=== PATIENT | female | born 1950 | race Caucasian/White ===

== ENCOUNTER 2021-11-28 10:45 | Outpatient (CLI) | payer SELFPAY ==
[2021-11-28] MEDS ORDERED: LIDOCAINE SOLN 4% 50 ML BOTTLE ONE (10:56)
== END 2021-11-28 23:59 ==
LOC: WOU 10:45
PROVIDERS: ATTEND Specialist
DX: E11.621 Type 2 diabetes mellitus with foot ulcer (principal); L97.412 Non-pressure chronic ulcer of right heel and midfoot with fat layer exposed; E11.42 Type 2 diabetes mellitus with diabetic polyneuropathy; E11.69 Type 2 diabetes mellitus with other specified complication; M86.671 Other chronic osteomyelitis, right ankle and foot; Z79.4 Long term (current) use of insulin
CPT/HCPCS: 87070; 87075; 87077; 87186; 99205; A6209; G0463

== ENCOUNTER 2021-12-12 10:15 | Outpatient (CLI) | payer SELFPAY ==
[2021-12-12] MEDS ORDERED: CLOTRIMAZOLE 1% 15 GM TUBE TP ONE (10:39)
== END 2021-12-12 23:59 | disposition home health service (06) ==
LOC: WOU 10:15
PROVIDERS: ATTEND Specialist
DX: E11.621 Type 2 diabetes mellitus with foot ulcer (principal); L97.412 Non-pressure chronic ulcer of right heel and midfoot with fat layer exposed; B95.62 Methicillin resistant Staphylococcus aureus infection as the cause of diseases classified elsewhere; E11.42 Type 2 diabetes mellitus with diabetic polyneuropathy; Z79.4 Long term (current) use of insulin
CPT/HCPCS: A6209; G0463

== ENCOUNTER 2021-12-19 10:00 | Outpatient (CLI) | payer SELFPAY ==
[2021-12-19] MEDS ORDERED: LIDOCAINE 2% JEL 5 ML TUBE ONE (10:23)
[2021-12-19] MEDS ORDERED: CLOTRIMAZOLE 1% 15 GM TUBE TP ONE (10:41)
== END 2021-12-19 23:59 | disposition home health service (06) ==
LOC: WOU 10:00
PROVIDERS: ATTEND Specialist
DX: E11.621 Type 2 diabetes mellitus with foot ulcer (principal); L97.412 Non-pressure chronic ulcer of right heel and midfoot with fat layer exposed; E11.42 Type 2 diabetes mellitus with diabetic polyneuropathy; Z79.4 Long term (current) use of insulin
CPT/HCPCS: A6209; G0463

== ENCOUNTER 2021-12-26 10:45 | Outpatient (CLI) | payer SELFPAY ==
[2021-12-26] MEDS ORDERED: LIDOCAINE 2% JEL 5 ML TUBE ONE (10:49)
[2021-12-26] MEDS ORDERED: CLOTRIMAZOLE 1% 15 GM TUBE TP ONE (11:05)
== END 2021-12-26 23:59 | disposition home health service (06) ==
LOC: WOU 10:45
PROVIDERS: ATTEND Specialist
DX: E11.621 Type 2 diabetes mellitus with foot ulcer (principal); L97.412 Non-pressure chronic ulcer of right heel and midfoot with fat layer exposed; E11.42 Type 2 diabetes mellitus with diabetic polyneuropathy; Z79.4 Long term (current) use of insulin; Z87.891 Personal history of nicotine dependence
CPT/HCPCS: 11042; A6209

== ENCOUNTER 2022-01-02 10:36 | Outpatient (CLI) | payer SELFPAY ==
[2022-01-02] MEDS ORDERED: LIDOCAINE 2% JEL 5 ML TUBE ONE (10:54)
== END 2022-01-02 23:59 | disposition home health service (06) ==
LOC: WOU 10:36
PROVIDERS: ATTEND Specialist
DX: E11.621 Type 2 diabetes mellitus with foot ulcer (principal); L97.412 Non-pressure chronic ulcer of right heel and midfoot with fat layer exposed; E11.42 Type 2 diabetes mellitus with diabetic polyneuropathy; Z87.891 Personal history of nicotine dependence; Z79.4 Long term (current) use of insulin
CPT/HCPCS: 11042; A6209

== ENCOUNTER 2022-01-09 10:15 | Outpatient (CLI) | payer MEDICARE, OTHER | END 2022-01-09 23:59 | disposition home health service (06) | LOC: WOU 10:15 | PROVIDERS: ATTEND Specialist | DX: E11.621 Type 2 diabetes mellitus with foot ulcer (principal); L97.412 Non-pressure chronic ulcer of right heel and midfoot with fat layer exposed; E11.42 Type 2 diabetes mellitus with diabetic polyneuropathy; Z79.4 Long term (current) use of insulin | CPT/HCPCS: 11042 ==

== ENCOUNTER 2022-01-16 10:20 | Outpatient (CLI) | payer MEDICARE, OTHER ==
[2022-01-16] MEDS ORDERED: LIDOCAINE SOLN 4% 50 ML BOTTLE ONE (10:21)
[2022-01-16] MEDS ORDERED: CLOTRIMAZOLE 1% 15 GM TUBE TP ONE (10:52)
== END 2022-01-16 23:59 | disposition home health service (06) ==
LOC: WOU 10:20
PROVIDERS: ATTEND Specialist
DX: E11.621 Type 2 diabetes mellitus with foot ulcer (principal); L97.412 Non-pressure chronic ulcer of right heel and midfoot with fat layer exposed; E11.42 Type 2 diabetes mellitus with diabetic polyneuropathy; Z79.4 Long term (current) use of insulin
CPT/HCPCS: G0463; A6209

== ENCOUNTER 2022-01-23 10:20 | Outpatient (CLI) | payer MEDICARE, OTHER ==
[2022-01-23] MEDS ORDERED: CLOTRIMAZOLE 1% 15 GM TUBE TP ONE (11:18)
== END 2022-01-23 23:59 | disposition home health service (06) ==
LOC: WOU 10:20
PROVIDERS: ATTEND Specialist
DX: E11.621 Type 2 diabetes mellitus with foot ulcer (principal); L97.412 Non-pressure chronic ulcer of right heel and midfoot with fat layer exposed; E11.42 Type 2 diabetes mellitus with diabetic polyneuropathy; Z79.4 Long term (current) use of insulin
CPT/HCPCS: 17250; 87077; 87075; 87070; 87186; A6209

== ENCOUNTER 2022-01-30 10:10 | Outpatient (CLI) | payer MEDICARE, OTHER ==
[~2022-01-30 10:10] MED LIST: LIDOCAINE SOLN 4% 50 ML BOTTLE ONE
[2022-01-30] MEDS ORDERED: CLOTRIMAZOLE 1% 15 GM TUBE TP ONE (11:08)
== END 2022-01-30 23:59 | disposition home health service (06) ==
LOC: WOU 10:10
PROVIDERS: ATTEND Specialist
DX: E11.621 Type 2 diabetes mellitus with foot ulcer (principal); L97.412 Non-pressure chronic ulcer of right heel and midfoot with fat layer exposed; L08.9 Local infection of the skin and subcutaneous tissue, unspecified; B95.62 Methicillin resistant Staphylococcus aureus infection as the cause of diseases classified elsewhere; E11.42 Type 2 diabetes mellitus with diabetic polyneuropathy; Z79.4 Long term (current) use of insulin
CPT/HCPCS: G0463; A6209 ×2

== ENCOUNTER 2022-02-06 10:55 | Outpatient (CLI) | payer MEDICARE, OTHER | END 2022-02-06 23:59 | disposition home health service (06) | LOC: WOU 10:55 | PROVIDERS: ATTEND Specialist | DX: E11.621 Type 2 diabetes mellitus with foot ulcer (principal); L97.412 Non-pressure chronic ulcer of right heel and midfoot with fat layer exposed; E11.42 Type 2 diabetes mellitus with diabetic polyneuropathy; Z79.4 Long term (current) use of insulin | CPT/HCPCS: 11042; A6209 ==

== ENCOUNTER 2022-02-13 10:20 | Outpatient (CLI) | payer MEDICARE, OTHER | END 2022-02-13 23:59 | disposition home health service (06) | LOC: WOU 10:20 | PROVIDERS: ATTEND Specialist | DX: E11.621 Type 2 diabetes mellitus with foot ulcer (principal); L97.412 Non-pressure chronic ulcer of right heel and midfoot with fat layer exposed; E11.42 Type 2 diabetes mellitus with diabetic polyneuropathy; Z79.4 Long term (current) use of insulin; Z87.891 Personal history of nicotine dependence | CPT/HCPCS: 11042; A6209 ==

== ENCOUNTER 2022-02-20 10:40 | Outpatient (CLI) | payer MEDICARE, OTHER ==
[2022-02-20] MEDS ORDERED: LIDOCAINE SOLN 4% 50 ML BOTTLE ONE (10:48)
== END 2022-02-20 23:59 | disposition home or self-care (01) ==
LOC: WOU 10:40
PROVIDERS: ATTEND Specialist
DX: E11.621 Type 2 diabetes mellitus with foot ulcer (principal); L97.412 Non-pressure chronic ulcer of right heel and midfoot with fat layer exposed; E11.42 Type 2 diabetes mellitus with diabetic polyneuropathy; F41.9 Anxiety disorder, unspecified; Z87.891 Personal history of nicotine dependence; Z88.1 Allergy status to other antibiotic agents
CPT/HCPCS: 11042; 87077; 87075; 87070; A6209

== ENCOUNTER 2022-02-27 10:50 | Outpatient (CLI) | payer MEDICARE, OTHER ==
[2022-02-27] MEDS ORDERED: LIDOCAINE SOLN 4% 50 ML BOTTLE ONE (11:00)
== END 2022-02-27 23:59 ==
LOC: WOU 10:50
PROVIDERS: ATTEND Specialist
DX: E11.621 Type 2 diabetes mellitus with foot ulcer (principal); L97.412 Non-pressure chronic ulcer of right heel and midfoot with fat layer exposed; E11.42 Type 2 diabetes mellitus with diabetic polyneuropathy; Z87.891 Personal history of nicotine dependence; F60.3 Borderline personality disorder; Z88.1 Allergy status to other antibiotic agents; Z86.73 Personal history of transient ischemic attack (TIA), and cerebral infarction without residual deficits
CPT/HCPCS: G0463; A6209

== ENCOUNTER 2022-03-06 10:30 | Outpatient (CLI) | payer MEDICARE, OTHER ==
[2022-03-06] MEDS ORDERED: LIDOCAINE SOLN 4% 50 ML BOTTLE ONE (10:34)
== END 2022-03-06 23:59 ==
LOC: WOU 10:30
PROVIDERS: ATTEND Specialist
DX: E11.621 Type 2 diabetes mellitus with foot ulcer (principal); L97.412 Non-pressure chronic ulcer of right heel and midfoot with fat layer exposed; E11.42 Type 2 diabetes mellitus with diabetic polyneuropathy; Z87.891 Personal history of nicotine dependence; F60.3 Borderline personality disorder; R26.9 Unspecified abnormalities of gait and mobility; Z79.4 Long term (current) use of insulin
CPT/HCPCS: 11042

== ENCOUNTER 2022-03-13 10:40 | Outpatient (CLI) | payer MEDICARE, OTHER ==
[2022-03-13] MEDS ORDERED: LIDOCAINE SOLN 4% 50 ML BOTTLE ONE (11:01)
== END 2022-03-13 23:59 | disposition home health service (06) ==
LOC: WOU 10:40
PROVIDERS: ATTEND Specialist
DX: E11.621 Type 2 diabetes mellitus with foot ulcer (principal); L97.412 Non-pressure chronic ulcer of right heel and midfoot with fat layer exposed; L08.9 Local infection of the skin and subcutaneous tissue, unspecified; B95.62 Methicillin resistant Staphylococcus aureus infection as the cause of diseases classified elsewhere; E11.42 Type 2 diabetes mellitus with diabetic polyneuropathy; Z79.4 Long term (current) use of insulin
CPT/HCPCS: G0463; A6209

== ENCOUNTER 2022-03-20 10:35 | Outpatient (CLI) | payer MEDICARE, OTHER | END 2022-03-20 23:59 | disposition home health service (06) | LOC: WOU 10:35 | PROVIDERS: ATTEND Specialist | DX: E11.621 Type 2 diabetes mellitus with foot ulcer (principal); L97.412 Non-pressure chronic ulcer of right heel and midfoot with fat layer exposed; E11.42 Type 2 diabetes mellitus with diabetic polyneuropathy; Z79.4 Long term (current) use of insulin | CPT/HCPCS: 17250; A6209 ==

== ENCOUNTER 2022-03-27 10:00 | Outpatient (CLI) | payer MEDICARE, OTHER ==
[2022-03-27] MEDS ORDERED: LIDOCAINE SOLN 4% 50 ML BOTTLE ONE (10:25)
== END 2022-03-27 23:59 | disposition home health service (06) ==
LOC: WOU 10:00
PROVIDERS: ATTEND Specialist
DX: E11.621 Type 2 diabetes mellitus with foot ulcer (principal); L97.412 Non-pressure chronic ulcer of right heel and midfoot with fat layer exposed; S99.921A Unspecified injury of right foot, initial encounter; W22.03XA Walked into furniture, initial encounter; Y92.89 Other specified places as the place of occurrence of the external cause; E11.42 Type 2 diabetes mellitus with diabetic polyneuropathy; Z79.4 Long term (current) use of insulin
CPT/HCPCS: 11042; A6209

== ENCOUNTER 2022-04-03 10:20 | Outpatient (CLI) | payer MEDICARE, OTHER | END 2022-04-03 23:59 | disposition home health service (06) | LOC: WOU 10:20 | PROVIDERS: ATTEND Specialist | DX: E11.621 Type 2 diabetes mellitus with foot ulcer (principal); L97.412 Non-pressure chronic ulcer of right heel and midfoot with fat layer exposed; E11.42 Type 2 diabetes mellitus with diabetic polyneuropathy; Z79.4 Long term (current) use of insulin | CPT/HCPCS: G0463; A6209 ==

== ENCOUNTER 2022-04-10 10:18 | Outpatient (CLI) | payer MEDICARE, OTHER | END 2022-04-10 23:59 | disposition home health service (06) | LOC: WOU 10:18 | PROVIDERS: ATTEND Specialist | DX: E11.621 Type 2 diabetes mellitus with foot ulcer (principal); L97.418 Non-pressure chronic ulcer of right heel and midfoot with other specified severity; E11.42 Type 2 diabetes mellitus with diabetic polyneuropathy; Z79.4 Long term (current) use of insulin | CPT/HCPCS: G0463; A6209 ==

== ENCOUNTER 2022-04-24 10:45 | Outpatient (CLI) | payer MEDICARE, OTHER ==
[2022-04-24] MEDS ORDERED: SILVER NITRATE APPLICATOR 1 EA BOX ONE (11:38)
== END 2022-04-24 23:59 ==
LOC: WOU 10:45
PROVIDERS: ATTEND Specialist
DX: E11.621 Type 2 diabetes mellitus with foot ulcer (principal); L97.418 Non-pressure chronic ulcer of right heel and midfoot with other specified severity; E11.42 Type 2 diabetes mellitus with diabetic polyneuropathy; Z79.4 Long term (current) use of insulin; S83.91XA Sprain of unspecified site of right knee, initial encounter; W19.XXXA Unspecified fall, initial encounter; Y93.89 Activity, other specified; Y92.89 Other specified places as the place of occurrence of the external cause; Y99.8 Other external cause status; M25.561 Pain in right knee; M79.604 Pain in right leg
CPT/HCPCS: 17250; 73564; 73590; A6209

== ENCOUNTER 2022-05-01 10:30 | Outpatient (CLI) | payer MEDICARE, OTHER | END 2022-05-01 23:59 | disposition home health service (06) | LOC: WOU 10:30 | PROVIDERS: ATTEND Specialist | DX: E11.621 Type 2 diabetes mellitus with foot ulcer (principal); L97.418 Non-pressure chronic ulcer of right heel and midfoot with other specified severity; E11.42 Type 2 diabetes mellitus with diabetic polyneuropathy; Z79.4 Long term (current) use of insulin; Z87.891 Personal history of nicotine dependence | CPT/HCPCS: 87077; 87075; 87070; G0463; A6209 ==

== ENCOUNTER 2022-05-08 10:32 | Outpatient (CLI) | payer MEDICARE, OTHER | END 2022-05-08 23:59 | LOC: WOU 10:32 | PROVIDERS: ATTEND Specialist | DX: E11.621 Type 2 diabetes mellitus with foot ulcer (principal); L97.418 Non-pressure chronic ulcer of right heel and midfoot with other specified severity; E11.42 Type 2 diabetes mellitus with diabetic polyneuropathy; Z79.4 Long term (current) use of insulin | CPT/HCPCS: 15275; Q4158; A6209 ==

== ENCOUNTER 2022-05-15 10:40 | Outpatient (CLI) | payer MEDICARE, OTHER ==
[2022-05-15] MEDS ORDERED: LIDOCAINE SOLN 4% 50 ML BOTTLE ONE (10:43)
[2022-05-15] MEDS ORDERED: UREA 10% -AHA 4% CREAM 57 GM TUBE ONE (11:42)
== END 2022-05-15 23:59 | disposition home health service (06) ==
LOC: WOU 10:40
PROVIDERS: ATTEND Specialist
DX: E11.621 Type 2 diabetes mellitus with foot ulcer (principal); L97.412 Non-pressure chronic ulcer of right heel and midfoot with fat layer exposed; E11.42 Type 2 diabetes mellitus with diabetic polyneuropathy; Z79.4 Long term (current) use of insulin; Z87.891 Personal history of nicotine dependence
CPT/HCPCS: 15275; Q4101 ×2

== ENCOUNTER 2022-05-22 10:30 | Outpatient (CLI) | payer MEDICARE, OTHER | END 2022-05-22 23:59 | disposition home health service (06) | LOC: WOU 10:30 | PROVIDERS: ATTEND Specialist | DX: E11.621 Type 2 diabetes mellitus with foot ulcer (principal); L97.412 Non-pressure chronic ulcer of right heel and midfoot with fat layer exposed; E11.42 Type 2 diabetes mellitus with diabetic polyneuropathy; Z79.4 Long term (current) use of insulin | CPT/HCPCS: 15275; Q4101 ×2 ==

== ENCOUNTER 2022-06-05 10:36 | Outpatient (CLI) | payer MEDICARE, OTHER | END 2022-06-05 23:59 | disposition home health service (06) | LOC: WOU 10:36 | PROVIDERS: ATTEND Specialist | DX: E11.621 Type 2 diabetes mellitus with foot ulcer (principal); L97.412 Non-pressure chronic ulcer of right heel and midfoot with fat layer exposed; E11.42 Type 2 diabetes mellitus with diabetic polyneuropathy; Z79.4 Long term (current) use of insulin | CPT/HCPCS: 15275; Q4101 ×2 ==

== ENCOUNTER 2022-06-12 10:57 | Outpatient (CLI) | payer MEDICARE, OTHER | END 2022-06-12 23:59 | disposition home health service (06) | LOC: WOU 10:57 | PROVIDERS: ATTEND Specialist | DX: E11.621 Type 2 diabetes mellitus with foot ulcer (principal); L97.412 Non-pressure chronic ulcer of right heel and midfoot with fat layer exposed; E11.42 Type 2 diabetes mellitus with diabetic polyneuropathy; Z79.4 Long term (current) use of insulin; Z87.891 Personal history of nicotine dependence | CPT/HCPCS: 15275; Q4133 ==

== ENCOUNTER 2022-06-19 10:20 | Outpatient (CLI) | payer MEDICARE, OTHER | END 2022-06-19 23:59 | disposition home or self-care (01) | LOC: WOU 10:20 | PROVIDERS: ATTEND Specialist | DX: E11.621 Type 2 diabetes mellitus with foot ulcer (principal); L97.412 Non-pressure chronic ulcer of right heel and midfoot with fat layer exposed; E11.42 Type 2 diabetes mellitus with diabetic polyneuropathy; Z79.4 Long term (current) use of insulin; I89.0 Lymphedema, not elsewhere classified | CPT/HCPCS: G0463 ==

== ENCOUNTER 2022-06-26 10:35 | Outpatient (CLI) | payer MEDICARE, OTHER | END 2022-06-26 23:59 | disposition home health service (06) | LOC: WOU 10:35 | PROVIDERS: ATTEND Specialist | DX: E11.621 Type 2 diabetes mellitus with foot ulcer (principal); L97.412 Non-pressure chronic ulcer of right heel and midfoot with fat layer exposed; E11.42 Type 2 diabetes mellitus with diabetic polyneuropathy; R60.0 Localized edema; Z79.4 Long term (current) use of insulin | CPT/HCPCS: 15275; Q4158 ==

== ENCOUNTER 2022-07-10 10:31 | Outpatient (CLI) | payer MEDICARE, OTHER | END 2022-07-10 23:59 | disposition home health service (06) | LOC: WOU 10:31 | PROVIDERS: ATTEND Specialist | DX: E11.621 Type 2 diabetes mellitus with foot ulcer (principal); L97.412 Non-pressure chronic ulcer of right heel and midfoot with fat layer exposed; E11.42 Type 2 diabetes mellitus with diabetic polyneuropathy; Z79.4 Long term (current) use of insulin | CPT/HCPCS: G0463 ==

== ENCOUNTER 2022-07-17 10:30 | Outpatient (CLI) | payer MEDICARE, OTHER ==
[2022-07-17] MEDS ORDERED: LIDOCAINE SOLN 4% 50 ML BOTTLE ONE (10:52)
== END 2022-07-17 23:59 | disposition home health service (06) ==
LOC: WOU 10:30
PROVIDERS: ATTEND Specialist
DX: E11.621 Type 2 diabetes mellitus with foot ulcer (principal); L97.412 Non-pressure chronic ulcer of right heel and midfoot with fat layer exposed; E11.42 Type 2 diabetes mellitus with diabetic polyneuropathy; Z79.4 Long term (current) use of insulin
CPT/HCPCS: G0463

== ENCOUNTER 2022-07-24 11:11 | Outpatient (CLI) | payer MEDICARE, OTHER | END 2022-07-24 23:59 | disposition home health service (06) | LOC: WOU 11:11 | PROVIDERS: ATTEND Specialist | DX: E11.621 Type 2 diabetes mellitus with foot ulcer (principal); L97.412 Non-pressure chronic ulcer of right heel and midfoot with fat layer exposed; E11.42 Type 2 diabetes mellitus with diabetic polyneuropathy; Z79.4 Long term (current) use of insulin | CPT/HCPCS: 11042 ==

== ENCOUNTER 2022-07-31 10:19 | Outpatient (CLI) | payer MEDICARE, OTHER ==
[2022-07-31] MEDS ORDERED: LIDOCAINE SOLN 4% 50 ML BOTTLE ONE (10:21)
== END 2022-07-31 23:59 ==
LOC: WOU 10:19
PROVIDERS: ATTEND Specialist
DX: E11.621 Type 2 diabetes mellitus with foot ulcer (principal); L97.412 Non-pressure chronic ulcer of right heel and midfoot with fat layer exposed; E11.42 Type 2 diabetes mellitus with diabetic polyneuropathy; Z87.891 Personal history of nicotine dependence; Z79.4 Long term (current) use of insulin
CPT/HCPCS: 11042

== ENCOUNTER 2022-08-07 10:30 | Outpatient (CLI) | payer MEDICARE, OTHER ==
[2022-08-07] MEDS ORDERED: LIDOCAINE SOLN 4% 50 ML BOTTLE ONE (10:50)
== END 2022-08-07 23:59 | disposition home health service (06) ==
LOC: WOU 10:30
PROVIDERS: ATTEND Specialist
DX: E11.621 Type 2 diabetes mellitus with foot ulcer (principal); L97.418 Non-pressure chronic ulcer of right heel and midfoot with other specified severity; E11.42 Type 2 diabetes mellitus with diabetic polyneuropathy; Z79.4 Long term (current) use of insulin; Z87.891 Personal history of nicotine dependence
CPT/HCPCS: G0463; A6209

== ENCOUNTER 2022-08-14 11:43 | Outpatient (CLI) | payer MEDICARE, OTHER | END 2022-08-14 23:59 | LOC: WOU 11:43 | PROVIDERS: ATTEND Specialist | DX: E11.621 Type 2 diabetes mellitus with foot ulcer (principal); L97.418 Non-pressure chronic ulcer of right heel and midfoot with other specified severity; E11.42 Type 2 diabetes mellitus with diabetic polyneuropathy; Z79.4 Long term (current) use of insulin | CPT/HCPCS: 11042 ==

== ENCOUNTER 2022-08-21 11:00 | Outpatient (CLI) | payer MEDICARE, OTHER | END 2022-08-21 23:59 | LOC: WOU 11:00 | PROVIDERS: ATTEND Specialist | DX: E11.621 Type 2 diabetes mellitus with foot ulcer (principal); L97.418 Non-pressure chronic ulcer of right heel and midfoot with other specified severity; E11.42 Type 2 diabetes mellitus with diabetic polyneuropathy; Z87.891 Personal history of nicotine dependence; Z79.4 Long term (current) use of insulin | CPT/HCPCS: 87070; 87075; G0463; A6197 ==

== ENCOUNTER → 2022-08-28 | Outpatient (CLI) | payer MEDICARE, OTHER | LOC: WOU 10:54 | PROVIDERS: ATTEND Specialist | DX: E11.621 Type 2 diabetes mellitus with foot ulcer (principal); L97.412 Non-pressure chronic ulcer of right heel and midfoot with fat layer exposed; E11.42 Type 2 diabetes mellitus with diabetic polyneuropathy; Z79.4 Long term (current) use of insulin | CPT/HCPCS: 11042 ==

== ENCOUNTER 2022-09-04 10:12 | Outpatient (CLI) | payer MEDICARE, OTHER | END 2022-09-04 23:59 | LOC: WOU 10:12 | PROVIDERS: ATTEND Specialist | DX: E11.621 Type 2 diabetes mellitus with foot ulcer (principal); L97.412 Non-pressure chronic ulcer of right heel and midfoot with fat layer exposed; E11.42 Type 2 diabetes mellitus with diabetic polyneuropathy; Z87.891 Personal history of nicotine dependence; Z79.4 Long term (current) use of insulin | CPT/HCPCS: 11042 ==

== ENCOUNTER 2022-09-11 10:30 | Outpatient (CLI) | payer MEDICARE, OTHER | END 2022-09-11 23:59 | LOC: WOU 10:30 | PROVIDERS: ATTEND Specialist | DX: E11.621 Type 2 diabetes mellitus with foot ulcer (principal); L97.412 Non-pressure chronic ulcer of right heel and midfoot with fat layer exposed; E11.42 Type 2 diabetes mellitus with diabetic polyneuropathy; Z79.4 Long term (current) use of insulin | CPT/HCPCS: 17250; A6197 ==

== ENCOUNTER 2022-09-18 11:05 | Outpatient (CLI) | payer MEDICARE, OTHER | END 2022-09-18 23:59 | disposition home health service (06) | LOC: WOU 11:05 | PROVIDERS: ATTEND Specialist | DX: E11.621 Type 2 diabetes mellitus with foot ulcer (principal); L97.412 Non-pressure chronic ulcer of right heel and midfoot with fat layer exposed; E11.42 Type 2 diabetes mellitus with diabetic polyneuropathy; Z79.4 Long term (current) use of insulin | CPT/HCPCS: 15275; Q4158 ==

== ENCOUNTER 2022-09-25 11:01 | Outpatient (CLI) | payer MEDICARE, OTHER | END 2022-09-25 23:59 | disposition home health service (06) | LOC: WOU 11:01 | PROVIDERS: ATTEND Specialist | DX: E11.621 Type 2 diabetes mellitus with foot ulcer (principal); L97.412 Non-pressure chronic ulcer of right heel and midfoot with fat layer exposed; E11.42 Type 2 diabetes mellitus with diabetic polyneuropathy; Z79.4 Long term (current) use of insulin; Z87.891 Personal history of nicotine dependence | CPT/HCPCS: 15275; Q4158 ==

== ENCOUNTER 2022-10-02 10:22 | Outpatient (CLI) | payer MEDICARE, OTHER | END 2022-10-02 23:59 | disposition home health service (06) | LOC: WOU 10:22 | PROVIDERS: ATTEND Specialist | DX: E11.621 Type 2 diabetes mellitus with foot ulcer (principal); L97.412 Non-pressure chronic ulcer of right heel and midfoot with fat layer exposed; L97.518 Non-pressure chronic ulcer of other part of right foot with other specified severity; E11.42 Type 2 diabetes mellitus with diabetic polyneuropathy; Z87.891 Personal history of nicotine dependence; Z79.4 Long term (current) use of insulin | CPT/HCPCS: 15275; Q4158; A6209 ==

== ENCOUNTER 2022-10-09 11:33 | Outpatient (CLI) | payer MEDICARE, OTHER | END 2022-10-09 23:59 | LOC: WOU 11:33 | PROVIDERS: ATTEND Specialist | DX: E11.621 Type 2 diabetes mellitus with foot ulcer (principal); L97.412 Non-pressure chronic ulcer of right heel and midfoot with fat layer exposed; L97.512 Non-pressure chronic ulcer of other part of right foot with fat layer exposed; E11.42 Type 2 diabetes mellitus with diabetic polyneuropathy; Z79.4 Long term (current) use of insulin | CPT/HCPCS: 15271; Q4158; A6209 ==

== ENCOUNTER 2022-10-16 11:41 | Outpatient (CLI) | payer MEDICARE, OTHER | END 2022-10-16 23:59 | LOC: WOU 11:41 | PROVIDERS: ATTEND Specialist | DX: E11.621 Type 2 diabetes mellitus with foot ulcer (principal); L97.512 Non-pressure chronic ulcer of other part of right foot with fat layer exposed; L97.412 Non-pressure chronic ulcer of right heel and midfoot with fat layer exposed; E11.42 Type 2 diabetes mellitus with diabetic polyneuropathy; Z87.891 Personal history of nicotine dependence; Z79.4 Long term (current) use of insulin | CPT/HCPCS: G0463 ==

== ENCOUNTER 2022-10-23 13:09 | Outpatient (CLI) | payer MEDICARE, OTHER | END 2022-10-23 23:59 | LOC: WOU 13:09 | PROVIDERS: ATTEND Specialist | DX: E11.621 Type 2 diabetes mellitus with foot ulcer (principal); L97.412 Non-pressure chronic ulcer of right heel and midfoot with fat layer exposed; L97.512 Non-pressure chronic ulcer of other part of right foot with fat layer exposed; E11.42 Type 2 diabetes mellitus with diabetic polyneuropathy; Z87.891 Personal history of nicotine dependence; Z79.4 Long term (current) use of insulin | CPT/HCPCS: G0463 ==

== ENCOUNTER 2022-10-30 10:36 | Outpatient (CLI) | payer MEDICARE, OTHER | END 2022-10-30 23:59 | disposition home health service (06) | LOC: WOU 10:36 | PROVIDERS: ATTEND Specialist | DX: E11.621 Type 2 diabetes mellitus with foot ulcer (principal); L97.412 Non-pressure chronic ulcer of right heel and midfoot with fat layer exposed; L97.512 Non-pressure chronic ulcer of other part of right foot with fat layer exposed; E11.42 Type 2 diabetes mellitus with diabetic polyneuropathy; I10 Essential (primary) hypertension; Z79.4 Long term (current) use of insulin | CPT/HCPCS: 11042 ==

== ENCOUNTER 2022-11-06 10:12 | Outpatient (CLI) | payer MEDICARE, OTHER | END 2022-11-06 23:59 | disposition home health service (06) | LOC: WOU 10:12 | PROVIDERS: ATTEND Specialist | DX: E11.621 Type 2 diabetes mellitus with foot ulcer (principal); L97.412 Non-pressure chronic ulcer of right heel and midfoot with fat layer exposed; L97.512 Non-pressure chronic ulcer of other part of right foot with fat layer exposed; E11.42 Type 2 diabetes mellitus with diabetic polyneuropathy; R60.0 Localized edema; Z79.4 Long term (current) use of insulin | CPT/HCPCS: 11042 ==

== ENCOUNTER 2022-11-20 11:03 | Outpatient (CLI) | payer MEDICARE, OTHER | END 2022-11-20 23:59 | LOC: WOU 11:03 | PROVIDERS: ATTEND Specialist | DX: E11.621 Type 2 diabetes mellitus with foot ulcer (principal); L97.418 Non-pressure chronic ulcer of right heel and midfoot with other specified severity; L97.518 Non-pressure chronic ulcer of other part of right foot with other specified severity; E11.42 Type 2 diabetes mellitus with diabetic polyneuropathy; R60.0 Localized edema; Z79.4 Long term (current) use of insulin | CPT/HCPCS: G0463 ==

== ENCOUNTER 2022-11-27 10:42 | Outpatient (CLI) | payer MEDICARE, OTHER | END 2022-11-27 23:59 | disposition home health service (06) | LOC: WOU 10:42 | PROVIDERS: ATTEND Specialist | DX: S90.411A Abrasion, right great toe, initial encounter (principal); X58.XXXA Exposure to other specified factors, initial encounter; Y92.89 Other specified places as the place of occurrence of the external cause; E11.42 Type 2 diabetes mellitus with diabetic polyneuropathy; Z79.4 Long term (current) use of insulin; R60.0 Localized edema | CPT/HCPCS: G0463 ==

== ENCOUNTER 2022-12-04 10:21 | Outpatient (CLI) | payer MEDICARE, OTHER | END 2022-12-04 23:59 | disposition home health service (06) | LOC: WOU 10:21 | PROVIDERS: ATTEND Specialist | DX: E11.621 Type 2 diabetes mellitus with foot ulcer (principal); L97.418 Non-pressure chronic ulcer of right heel and midfoot with other specified severity; E11.42 Type 2 diabetes mellitus with diabetic polyneuropathy; R60.0 Localized edema; Z79.4 Long term (current) use of insulin | CPT/HCPCS: G0463 ==

== ENCOUNTER 2022-12-11 11:12 | Outpatient (CLI) | payer MEDICARE, OTHER | END 2022-12-11 23:59 | disposition home health service (06) | LOC: WOU 11:12 | PROVIDERS: ATTEND Specialist | DX: E11.621 Type 2 diabetes mellitus with foot ulcer (principal); L97.418 Non-pressure chronic ulcer of right heel and midfoot with other specified severity; S90.812A Abrasion, left foot, initial encounter; X58.XXXA Exposure to other specified factors, initial encounter; Y92.89 Other specified places as the place of occurrence of the external cause; E11.42 Type 2 diabetes mellitus with diabetic polyneuropathy; R60.0 Localized edema; Z79.4 Long term (current) use of insulin | CPT/HCPCS: G0463 ==

== ENCOUNTER 2022-12-18 10:37 | Outpatient (CLI) | payer MEDICARE, OTHER | END 2022-12-18 23:59 | disposition home health service (06) | LOC: WOU 10:37 | PROVIDERS: ATTEND Specialist | DX: E11.621 Type 2 diabetes mellitus with foot ulcer (principal); L97.412 Non-pressure chronic ulcer of right heel and midfoot with fat layer exposed; L97.518 Non-pressure chronic ulcer of other part of right foot with other specified severity; R60.0 Localized edema; Z79.4 Long term (current) use of insulin | CPT/HCPCS: 11042; A6209 ==

== ENCOUNTER 2023-01-29 10:03 | Outpatient (CLI) | payer MEDICARE, OTHER | END 2023-01-29 23:59 | disposition home health service (06) | LOC: WOU 10:03 | PROVIDERS: ATTEND Specialist | DX: E11.621 Type 2 diabetes mellitus with foot ulcer (principal); L97.412 Non-pressure chronic ulcer of right heel and midfoot with fat layer exposed; E11.42 Type 2 diabetes mellitus with diabetic polyneuropathy; R60.0 Localized edema; Z87.891 Personal history of nicotine dependence; Z79.4 Long term (current) use of insulin | CPT/HCPCS: 11042; A6209 ==

== ENCOUNTER 2023-03-05 11:06 | Outpatient (CLI) | payer MEDICARE, OTHER | END 2023-03-05 23:59 | disposition home health service (06) | LOC: WOU 11:06 | PROVIDERS: ATTEND Specialist | DX: E11.621 Type 2 diabetes mellitus with foot ulcer (principal); L97.412 Non-pressure chronic ulcer of right heel and midfoot with fat layer exposed; E11.42 Type 2 diabetes mellitus with diabetic polyneuropathy; R60.0 Localized edema; Z87.891 Personal history of nicotine dependence; Z88.1 Allergy status to other antibiotic agents; Z79.4 Long term (current) use of insulin; Z79.899 Other long term (current) drug therapy | CPT/HCPCS: 11042 ==

== ENCOUNTER 2023-03-26 09:59 | Outpatient (CLI) | payer MEDICARE, OTHER | END 2023-03-26 23:59 | disposition home health service (06) | LOC: WOU 09:59 | PROVIDERS: ATTEND Specialist | DX: E11.621 Type 2 diabetes mellitus with foot ulcer (principal); L97.412 Non-pressure chronic ulcer of right heel and midfoot with fat layer exposed; S90.411D Abrasion, right great toe, subsequent encounter; X58.XXXD Exposure to other specified factors, subsequent encounter; E11.42 Type 2 diabetes mellitus with diabetic polyneuropathy; Z79.4 Long term (current) use of insulin; R60.0 Localized edema | CPT/HCPCS: 11042; 11045; A6207; A6209 ==

== ENCOUNTER 2023-07-30 12:39 | Inpatient (IN) | payer MEDICARE, OTHER ==
[~2023-07-30] VITALS: Ht 167.6 cm; Wt 86.2 kg
[2023-07-30] MEDS ORDERED: VANCOMYCIN 1 GM in IV D5W 250 ML IV ONE (13:00)
[2023-07-30 13:47] LABS: BASOPHILS % (AUTO) 0.3 % (0.0-2.0); EOSINOPHILS # (AUTO) 0.1 K/uL (0.0-0.7); EOSINOPHILS % (AUTO) 1.2 % (0.0-6.0); HEMATOCRIT 44 % (33-45); LYMPHOCYTES # (AUTO) 0.8 K/uL (0.8-4.8); LYMPHOCYTES % (AUTO) 7.2 % (20.0-44.0); MEAN CORPUSCULAR HEMOGLOBIN 30 PG (26.0-33.0); MEAN CORPUSCULAR HGB CONC 32 g/dl (31.0-36.0); MEAN CORPUSCULAR VOLUME 94 fL (82-100); MONOCYTES # (AUTO) 0.9 K/uL (0.1-1.30); MONOCYTES % (AUTO) 8.2 % (2.0-12.0); NEUTROPHILS # (AUTO) 8.6 K/uL (1.8-8.9); NEUTROPHILS % (AUTO) 83.1 % (43.0-81.0); PLATELET COUNT (AUTO) 98 K/uL (150-450); RED CELL DISTRIBUTION WIDTH 20.2 % (11.5-15.0); WHITE BLOOD COUNT (AUTO) 10.4 K/uL (4.3-11.0)
[2023-07-30 13:51] LABS: ERYTHROCYTE SEDIMENTATION RATE 36 MM/HR (0-30)
[2023-07-30 13:55] LABS: CALCIUM, SERUM 8.7 mg/dL (8.5-10.1); CARBON DIOXIDE 24 mmol/L (21-32); CHLORIDE 109 mmol/L (98-107); CREATININE 1.5 mg/dL (0.6-1.3); GLUCOSE 129 mg/dL (74-106); POTASSIUM 4.1 mmol/L (3.5-5.1); SODIUM SERUM 140 mmol/L (136-145); UREA NITROGEN, BLOOD 34 mg/dL (7-18)
[2023-07-30 13:56] LABS: C-REACTIVE PROTEIN 2.84 mg/dL (0.0-0.30)
[2023-07-30 14:06] LABS: LACTIC ACID 2.5 mmol/L (0.4-2.0)
[2023-07-30 14:09] LABS: ALANINE AMINOTRANSFERASE 13 U/L (12-78); ALBUMIN 2.9 g/dL (3.4-5.0); ALKALINE PHOSPHATASE 160 U/L (46-116); ASPARTATE AMINOTRANSFERASE 11 U/L (15-37); BILIRUBIN,TOTAL 1.7 mg/dL (0.2-1.0); TOTAL PROTEIN, SERUM 7.3 g/dL (6.4-8.2)
[2023-07-30] MEDS ORDERED: INSU100V7 SQ (14:32)
[2023-07-30] MEDS ORDERED: [UNRECOGNIZED DRUG - SUPPLY] (14:32)
[2023-07-30] MEDS ORDERED: IBUP-1953 PO (14:32)
[2023-07-30] MEDS ORDERED: INSU100I14 SQ (14:32)
[2023-07-30] MEDS ORDERED: ACET1TAB23 PO (14:32)
[2023-07-30] MEDS ORDERED: GLUC1KIT IM (14:32)
[2023-07-30] MEDS ORDERED: ACET-868 PO (14:32)
[2023-07-30] MEDS ORDERED: GABA300C PO (14:32)
[2023-07-30] MEDS ORDERED: BISM-126 PO (14:33)
[2023-07-30] MEDS ORDERED: SENN-261 PO (14:33)
[2023-07-30] MEDS ORDERED: PANT40TA2 PO (14:33)
[2023-07-30] MEDS ORDERED: [UNRECOGNIZED DRUG - OTHER] TP (14:33)
[2023-07-30] MEDS ORDERED: POLY17PO4 PO (14:33)
[2023-07-30 16:03] LABS: LYMPHOCYTES % (MANUAL) 10 % (16-48); MONOCYTES % (MANUAL) 10 % (0-11.0); NEUTROPHILS % (MANUAL) 80 (42-76)
[2023-07-30 16:04] LABS: ANISOCYTOSIS 1+; PLATELET ESTIMATE DECREASED
[2023-07-30 16:24] LABS: BILIRUBIN,DIRECT 0.8 mg/dL (0.0-0.2)
[2023-07-30] MEDS ORDERED: ONDANSETRON HCL/PF 4 MG/2 ML VIAL IVP PRN (16:30)
[2023-07-30] MEDS ORDERED: IV NS 0.9% 1,000 ML IV PRN (16:30)
[2023-07-30] MEDS ORDERED: ACETAMINOPHEN 325 MG TABLET PO PRN (16:30)
[2023-07-30 16:32] LABS: LACTIC ACID REFLEX 1.8 mmol/L (0.4-1.9)
[2023-07-30] MEDS ORDERED: PIPERACILLIN /TAZOBACTAM 3.375 G in IV D5W 100 ML IV SCH (17:00)
[2023-07-30 18:45] VITALS: BP 118/83; TEMP 98.6; O2SAT 98
[2023-07-30] MEDS: ENOXAPARIN SODIUM 40 MG/0.4 ML DISP.SYRIN SQ SCH (19:06)
[2023-07-30] MEDS: LEVOFLOXACIN 500 MG /D5W 100ML 500 MG in PREMIX 1 EA IV SCH (21:12)
[2023-07-31 08:17] VITALS: BP 128/76; TEMP 97.5; O2SAT 96
[2023-07-31] MEDS ORDERED: PANTOPRAZOLE 40 MG TABLET.DR PO PRN (11:30)
[2023-07-31] MEDS: VANCOMYCIN 1 GM in IV D5W 250ml IV SCH (15:14)
[2023-07-31 15:51] VITALS: BP 98/72; TEMP 98.9; O2SAT 98
[2023-07-31 17:28] LABS: CARBON DIOXIDE 21 mmol/L (21-32); CHLORIDE 107 mmol/L (98-107); POTASSIUM 4.6 mmol/L (3.5-5.1); SODIUM SERUM 139 mmol/L (136-145)
[2023-07-31 17:29] LABS: CALCIUM, SERUM 8.8 mg/dL (8.5-10.1); CREATININE 1.5 mg/dL (0.6-1.3); GLUCOSE 177 mg/dL (74-106); PHOSPHORUS 3.4 mg/dL (2.5-4.9); UREA NITROGEN, BLOOD 34 mg/dL (7-18)
[2023-07-31] MEDS: ENOXAPARIN SODIUM 40 MG/0.4 ML DISP.SYRIN SQ SCH (17:41)
[2023-07-31] MEDS: LEVOFLOXACIN 500 MG /D5W 100ML 500 MG in PREMIX 1 EA IV SCH (21:19)
[2023-07-31] MEDS: GABAPENTIN 300 MG CAPSULE PO SCH (22:00)
[2023-08-01 08:34] VITALS: BP 97/62; TEMP 97.5; O2SAT 98
[2023-08-01] MEDS: VANCOMYCIN 1 GM in IV D5W 250ml IV SCH (14:04)
[2023-08-01 15:59] VITALS: BP 121/60; TEMP 97.6; O2SAT 98
[2023-08-01] MEDS: ENOXAPARIN SODIUM 40 MG/0.4 ML DISP.SYRIN SQ SCH (18:00)
[2023-08-01 20:00] VITALS: BP 98/69; TEMP 97.5; O2SAT 97
[2023-08-01] MEDS: GABAPENTIN 300 MG CAPSULE PO SCH (22:00)
[2023-08-01] MEDS: LEVOFLOXACIN 500 MG /D5W 100ML 500 MG in PREMIX 1 EA IV SCH (22:26)
[2023-08-02 08:00] VITALS: BP 102/74; TEMP 98.2; O2SAT 96
[2023-08-02] MEDS: VANCOMYCIN 1 GM in IV D5W 250ml IV SCH (14:00)
[2023-08-02] MEDS: ENOXAPARIN SODIUM 40 MG/0.4 ML DISP.SYRIN SQ SCH (17:47)
[2023-08-02] MEDS ORDERED: LEVO500T90 PO (17:49)
[2023-08-02] MEDS: LEVOFLOXACIN 500 MG /D5W 100ML 500 MG in PREMIX 1 EA IV SCH (21:00)
[2023-08-02] MEDS: GABAPENTIN 300 MG CAPSULE PO SCH (21:43)
[2023-08-03] MEDS: VANCOMYCIN 1 GM in IV D5W 250ml IV SCH (14:00)
== END 2023-08-03 15:00 | DRG 602 ==
LOC: ER 12:42 → MED 17:16
PROVIDERS: ADMIT Nurse Practitioner Acute Care; ATTEND Nurse Practitioner Acute Care
DX: L03.115 Cellulitis of right lower limb (principal); N17.0 Acute kidney failure with tubular necrosis; E44.0 Moderate protein-calorie malnutrition; E87.20 Acidosis, unspecified; D68.69 Other thrombophilia; L97.428 Non-pressure chronic ulcer of left heel and midfoot with other specified severity; L97.418 Non-pressure chronic ulcer of right heel and midfoot with other specified severity; M86.672 Other chronic osteomyelitis, left ankle and foot; L03.116 Cellulitis of left lower limb; E11.22 Type 2 diabetes mellitus with diabetic chronic kidney disease; E11.42 Type 2 diabetes mellitus with diabetic polyneuropathy; E11.51 Type 2 diabetes mellitus with diabetic peripheral angiopathy without gangrene; E11.69 Type 2 diabetes mellitus with other specified complication; E66.9 Obesity, unspecified; E88.09 Other disorders of plasma-protein metabolism, not elsewhere classified; F41.9 Anxiety disorder, unspecified; I12.9 Hypertensive chronic kidney disease with stage 1 through stage 4 chronic kidney disease, or unspecified chronic kidney disease; Z79.4 Long term (current) use of insulin; Z88.1 Allergy status to other antibiotic agents; E80.6 Other disorders of bilirubin metabolism; N18.30 Chronic kidney disease, stage 3 unspecified; Z91.199 Patient's noncompliance with other medical treatment and regimen due to unspecified reason; Z68.30 Body mass index [BMI] 30.0-30.9, adult; Z20.822 Contact with and (suspected) exposure to COVID-19; R53.1 Weakness; I87.8 Other specified disorders of veins; D69.6 Thrombocytopenia, unspecified; E11.621 Type 2 diabetes mellitus with foot ulcer; M85.80 Other specified disorders of bone density and structure, unspecified site
CPT/HCPCS: 36415; 76770-TC; 80048-TC; 80053-TC; 80202-TC; 82248-TC; 82962-TC; 83605-TC; 83735-TC; 84100-TC; 85025-TC; 85652-TC; 86140-TC; 87040-TC; 93970-TC; A4216; A6253; A6403; G0378; J1650; J1956; J2543; J3370; J7060

== ENCOUNTER 2023-08-15 19:06 | Inpatient (IN) | payer MEDICARE, OTHER ==
[~2023-08-15] VITALS: Ht 167.6 cm; Wt 78.9 kg
[2023-08-15 00:50] VITALS: BP 107/73; TEMP 97.7; O2SAT 96
[~2023-08-15 19:06] MED LIST changes: +ACET-868 PO; +ACET1TAB23 PO; +BISM-126 PO; +GABA300C PO; +GLUC1KIT IM; +IBUP-1953 PO; +INSU100I14 SQ; +INSU100V7 SQ; +LEVO500T90 PO; -LIDOCAINE SOLN 4% 50 ML BOTTLE ONE; +PANT40TA2 PO; +POLY17PO4 PO; +SENN-261 PO; +[UNRECOGNIZED DRUG - OTHER] TP; +[UNRECOGNIZED DRUG - SUPPLY]
[2023-08-15 20:05] LABS: BASOPHILS % (AUTO) 0.1 % (0.0-2.0); HEMATOCRIT 42 % (33-45); HEMOGLOBIN 13.3 g/dL (11.5-14.8); LYMPHOCYTES # (AUTO) 0.5 K/uL (0.8-4.8); LYMPHOCYTES % (AUTO) 3.4 % (20.0-44.0); MEAN CORPUSCULAR HEMOGLOBIN 29 PG (26.0-33.0); MEAN CORPUSCULAR HGB CONC 31 g/dl (31.0-36.0); MEAN CORPUSCULAR VOLUME 94 fL (82-100); MONOCYTES # (AUTO) 0.7 K/uL (0.1-1.30); MONOCYTES % (AUTO) 4.9 % (2.0-12.0); NEUTROPHILS # (AUTO) 13.3 K/uL (1.8-8.9); NEUTROPHILS % (AUTO) 91.6 % (43.0-81.0); PLATELET COUNT (AUTO) 104 K/uL (150-450); RED BLOOD CELL COUNT(AUTO) 4.53 MIL/uL (4.0-5.2); RED CELL DISTRIBUTION WIDTH 19.3 % (11.5-15.0); WHITE BLOOD COUNT (AUTO) 14.5 K/uL (4.3-11.0)
[2023-08-15 20:24] LABS: CALCIUM, SERUM 8.2 mg/dL (8.5-10.1); CARBON DIOXIDE 12 mmol/L (21-32); CHLORIDE 102 mmol/L (98-107); CREATININE 4.6 mg/dL (0.6-1.3); GLUCOSE 93 mg/dL (74-106); POTASSIUM 5.7 mmol/L (3.5-5.1); SODIUM SERUM 137 mmol/L (136-145); UREA NITROGEN, BLOOD 71 mg/dL (7-18)
[2023-08-15 20:37] LABS: ALANINE AMINOTRANSFERASE 18 U/L (12-78); ALBUMIN 2.9 g/dL (3.4-5.0); ALKALINE PHOSPHATASE 90 U/L (46-116); ASPARTATE AMINOTRANSFERASE 17 U/L (15-37); BILIRUBIN,DIRECT 2.1 mg/dL (0.0-0.2); NT-PRO BNP 19041 pg/mL (0-125); TOTAL PROTEIN, SERUM 6.4 g/dL (6.4-8.2)
[2023-08-15] MEDS: ALBUTEROL FS 2.5 MG/3 ML VIAL.NEB NEB ONE (21:00)
[2023-08-15] MEDS ORDERED: FUROSEMIDE 40 MG/4 ML VIAL ONE (21:10)
[2023-08-15] MEDS ORDERED: SODIUM POLYSTYRENE SULFONATE 15 G/60 ML BOTTLE ONE (21:11)
[2023-08-15] MEDS ORDERED: ASPIRIN 325 MG TABLET ONE (21:11)
[2023-08-15] MEDS ORDERED: SODIUM BICARBONATE SYR 50 MEQ/50 ML DISP.SYRIN ONE (21:11)
[2023-08-15] MEDS: ASPIRIN 325 MG TABLET PO ONE (21:12)
[2023-08-15] MEDS: SODIUM BICARBONATE SYR 50 MEQ/50 ML DISP.SYRIN IV ONE (21:12)
[2023-08-15] MEDS: FUROSEMIDE 40 MG/4 ML VIAL IV ONE (21:12)
[2023-08-15] MEDS: SODIUM POLYSTYRENE SULFONATE 15 G/60 ML BOTTLE PO ONE (21:12)
[2023-08-15] MEDS ORDERED: ZOLPIDEM TARTRATE 5 MG TABLET PO PRN (23:00)
[2023-08-15] MEDS ORDERED: ACETAMINOPHEN 325 MG TABLET PO PRN ×2 (23:00→23:30)
[2023-08-15] MEDS ORDERED: MAGNESIUM HYDROXIDE 30 ML UDC PO PRN (23:00)
[2023-08-15] MEDS ORDERED: Z GUARD REMEDY 4 OZ OINT TP PRN (23:00)
[2023-08-15] MEDS ORDERED: MAG HYDROX/AL HYDROX/SIMETH 30 ML UDC PO PRN (23:00)
[2023-08-15] MEDS ORDERED: DEXTROSE 50%-WATER 50 ML DISP.SYRIN IV PRN (23:00)
[2023-08-15] MEDS ORDERED: ACETAMINOPHEN W/ CODEINE#3 1 EA TABLET PO PRN (23:30)
[2023-08-15] MEDS ORDERED: POLYETHYLENE GLYCOL 3350 17 GM POWD.PACK PO PRN (23:30)
[2023-08-15] MEDS ORDERED: IBUPROFEN 400 MG TABLET PO PRN (23:30)
[2023-08-15] MEDS ORDERED: BISMUTH SUBSALICYLATE 262 MG/15 ML BOTTLE PO PRN (23:30)
[2023-08-15] MEDS ORDERED: SENNOSIDES 8.6 MG TABLET PO PRN (23:30)
[2023-08-16 01:00] VITALS: BP 107/73; TEMP 97.7; O2SAT 96
[2023-08-16] MEDS ORDERED: GLUCAGON,HUMAN RECOMBINANT 1 MG/VIAL VIAL IM PRN (01:00)
[2023-08-16 04:00] VITALS: BP 103/83; TEMP 97.7; O2SAT 95
[2023-08-16] MEDS: BLOOD SUGAR DIAGNOSTIC 1 EACH STRIP VI SCH (06:11)
[2023-08-16 07:59] LABS: BASOPHILS % (AUTO) 0.1 % (0.0-2.0); HEMATOCRIT 42 % (33-45); HEMOGLOBIN 13.2 g/dL (11.5-14.8); LYMPHOCYTES # (AUTO) 0.6 K/uL (0.8-4.8); LYMPHOCYTES % (AUTO) 4.2 % (20.0-44.0); MEAN CORPUSCULAR HEMOGLOBIN 30 PG (26.0-33.0); MEAN CORPUSCULAR HGB CONC 32 g/dl (31.0-36.0); MEAN CORPUSCULAR VOLUME 94 fL (82-100); MONOCYTES # (AUTO) 0.9 K/uL (0.1-1.30); NEUTROPHILS # (AUTO) 12.9 K/uL (1.8-8.9); NEUTROPHILS % (AUTO) 89.7 % (43.0-81.0); PLATELET COUNT (AUTO) 90 K/uL (150-450); RED BLOOD CELL COUNT(AUTO) 4.44 MIL/uL (4.0-5.2); RED CELL DISTRIBUTION WIDTH 19.2 % (11.5-15.0); WHITE BLOOD COUNT (AUTO) 14.4 K/uL (4.3-11.0)
[2023-08-16 08:14] LABS: THYROID STIMULATING HORMONE 4.588 uIU/mL (0.358-3.74)
[2023-08-16 08:26] LABS: CALCIUM, SERUM 8.3 mg/dL (8.5-10.1); CHLORIDE 102 mmol/L (98-107); CREATININE 4.8 mg/dL (0.6-1.3); GLUCOSE 113 mg/dL (74-106); MAGNESIUM 2.7 mg/dL (1.8-2.4); POTASSIUM 6.1 mmol/L (3.5-5.1); SODIUM SERUM 137 mmol/L (136-145); UREA NITROGEN, BLOOD 74 mg/dL (7-18)
[2023-08-16 08:34] LABS: CARBON DIOXIDE 10 mmol/L (21-32); PHOSPHORUS 8.3 mg/dL (2.5-4.9)
[2023-08-16] MEDS: FUROSEMIDE 40 MG/4 ML VIAL IV SCH (09:39)
[2023-08-16] MEDS: LEVOFLOXACIN (500MG) 500 MG TABLET PO SCH (09:39)
[2023-08-16] MEDS: PANTOPRAZOLE 40 MG TABLET.DR PO SCH (09:39)
[2023-08-16 12:02] LABS: ANISOCYTOSIS 1+; BAND % (MANUAL) 7 % (0.0-5.0); EOSINOPHILS % (MANUAL) 0 % (0-4); LYMPHOCYTES % (MANUAL) 7 % (16-48); MONOCYTES % (MANUAL) 10 % (0-11.0); NEUTROPHILS % (MANUAL) 78 (42-76); PLATELET ESTIMATE DECREASED
[2023-08-16 13:16] LABS: INR 1.56 (0.91-1.10); PROTHROMBIN TIME 16.1 SECS (9.2-11.1)
[2023-08-16] MEDS: ALBUMIN 25% 25 GM in PREMIX 1 EA IV PRN (17:39)
[2023-08-16] MEDS: GABAPENTIN 300 MG CAPSULE PO SCH (21:47)
[2023-08-17 00:25] VITALS: BP 128/72; TEMP 97.5; O2SAT 98
[2023-08-17 05:16] VITALS: BP 132/78; TEMP 97.4; O2SAT 100
[2023-08-17 07:00] VITALS: BP 165/131; TEMP 93; O2SAT 100
[2023-08-17 07:48] LABS: BASOPHILS % (AUTO) 0.1 % (0.0-2.0); EOSINOPHILS % (AUTO) 0.3 % (0.0-6.0); HEMATOCRIT 35 % (33-45); HEMOGLOBIN 11.4 g/dL (11.5-14.8); LYMPHOCYTES # (AUTO) 0.7 K/uL (0.8-4.8); LYMPHOCYTES % (AUTO) 7.3 % (20.0-44.0); MEAN CORPUSCULAR HEMOGLOBIN 30 PG (26.0-33.0); MEAN CORPUSCULAR HGB CONC 33 g/dl (31.0-36.0); MEAN CORPUSCULAR VOLUME 91 fL (82-100); MONOCYTES # (AUTO) 0.7 K/uL (0.1-1.30); MONOCYTES % (AUTO) 7.6 % (2.0-12.0); NEUTROPHILS # (AUTO) 7.9 K/uL (1.8-8.9); NEUTROPHILS % (AUTO) 84.7 % (43.0-81.0); PLATELET COUNT (AUTO) 70 K/uL (150-450); RED BLOOD CELL COUNT(AUTO) 3.84 MIL/uL (4.0-5.2); RED CELL DISTRIBUTION WIDTH 18.5 % (11.5-15.0); WHITE BLOOD COUNT (AUTO) 9.3 K/uL (4.3-11.0)
[2023-08-17 08:14] LABS: CREATINE KINASE, TOTAL 171 U/L (26-192)
[2023-08-17 08:24] LABS: ALANINE AMINOTRANSFERASE 13 U/L (12-78); ALBUMIN 2.6 g/dL (3.4-5.0); ALKALINE PHOSPHATASE 69 U/L (46-116); ASPARTATE AMINOTRANSFERASE 17 U/L (15-37); BILIRUBIN,TOTAL 2.4 mg/dL (0.2-1.0); CALCIUM, SERUM 7.4 mg/dL (8.5-10.1); CARBON DIOXIDE 20 mmol/L (21-32); CHLORIDE 102 mmol/L (98-107); CREATININE 4.4 mg/dL (0.6-1.3); GLUCOSE 84 mg/dL (74-106); MAGNESIUM 2.4 mg/dL (1.8-2.4); PHOSPHORUS 6.7 mg/dL (2.5-4.9); POTASSIUM 4.6 mmol/L (3.5-5.1); SODIUM SERUM 140 mmol/L (136-145); TOTAL PROTEIN, SERUM 5.4 g/dL (6.4-8.2); UREA NITROGEN, BLOOD 60 mg/dL (7-18)
[2023-08-17 08:49] LABS: ANISOCYTOSIS 1+; BAND % (MANUAL) 5 % (0.0-5.0); BASOPHILS % (MANUAL) 0 % (0.0-2.0); EOSINOPHILS % (MANUAL) 0 % (0-4); LYMPHOCYTES % (MANUAL) 9 % (16-48); MONOCYTES % (MANUAL) 5 % (0-11.0); NEUTROPHILS % (MANUAL) 81 (42-76); OVALOCYTES 1+; PLATELET ESTIMATE DECREASED
[2023-08-17] MEDS: AMLODIPINE BESYLATE 5 MG TABLET PO SCH (08:53)
[2023-08-17] MEDS: INSULIN REGULAR, HUMAN 100 UNIT/ML 3 ML VIAL SQ PRN (12:22)
[2023-08-17] MEDS: CARVEDILOL 6.25 MG TABLET PO SCH (12:52)
[2023-08-17 15:12] LABS: D-DIMER 3.29 mg/L(FEU (0.17-0.50); INR 1.6 (0.91-1.10); PARTIAL THROMBOPLASTIN TIME 43.3 SEC (24.3-34.3); PROTHROMBIN TIME 16.4 SECS (9.2-11.1)
[2023-08-17 16:00] VITALS: BP 180/110; TEMP 97.4; O2SAT 100
[2023-08-17 16:03] LABS: RHEUMATOID FACTOR SCREEN NEGATIVE (NEGATIVE)
[2023-08-17 16:05] VITALS: BP 162/90; TEMP 97.4; O2SAT 95
[2023-08-17 20:00] VITALS: BP_SYST 117; BP_SYST 126; BP_DIAS 64; BP_DIAS 99; TEMP 94.1; O2SAT 100
[2023-08-17] MEDS: *INSULIN REGULAR(HUMULIN R)HUM 100 UNIT/ML VIAL SQ PRN (22:05)
[2023-08-18] VITALS (70 sets, daily range): BP systolic 52–186; BP diastolic 38–152; TEMP 95.1–98.2; O2SAT 74–100
[2023-08-18] MEDS: IV NS 0.9% 500 ML IV ONE (06:35)
[2023-08-18 06:58] LABS: D-DIMER 3.27 mg/L(FEU (0.17-0.50); INR 1.54 (0.91-1.10); PARTIAL THROMBOPLASTIN TIME 44.5 SEC (24.3-34.3); PROTHROMBIN TIME 15.9 SECS (9.2-11.1)
[2023-08-18 07:33] LABS: BASOPHILS % (AUTO) 0.1 % (0.0-2.0); EOSINOPHILS % (AUTO) 0.6 % (0.0-6.0); HEMATOCRIT 34 % (33-45); HEMOGLOBIN 11.2 g/dL (11.5-14.8); LYMPHOCYTES # (AUTO) 0.5 K/uL (0.8-4.8); LYMPHOCYTES % (AUTO) 6.6 % (20.0-44.0); MEAN CORPUSCULAR HEMOGLOBIN 30 PG (26.0-33.0); MEAN CORPUSCULAR HGB CONC 33 g/dl (31.0-36.0); MEAN CORPUSCULAR VOLUME 91 fL (82-100); MONOCYTES # (AUTO) 0.5 K/uL (0.1-1.30); MONOCYTES % (AUTO) 6.9 % (2.0-12.0); NEUTROPHILS % (AUTO) 85.8 % (43.0-81.0); PLATELET COUNT (AUTO) 57 K/uL (150-450); RED BLOOD CELL COUNT(AUTO) 3.76 MIL/uL (4.0-5.2); RED CELL DISTRIBUTION WIDTH 18.7 % (11.5-15.0)
[2023-08-18] MEDS: PHENYLEPHRINE 100 MG in IV NS 0.9% 240 ML IV PRN (07:47)
[2023-08-18 08:56] LABS: BAND % (MANUAL) 4 % (0.0-5.0); LYMPHOCYTES % (MANUAL) 6 % (16-48); MONOCYTES % (MANUAL) 7 % (0-11.0); NEUTROPHILS % (MANUAL) 81 (42-76)
[2023-08-18 08:57] LABS: ANISOCYTOSIS 1+; EOSINOPHILS % (MANUAL) 2 % (0-4); HYPOCHROMASIA 1+; OVALOCYTES 1+; PLATELET ESTIMATE DECREASED; TEAR DROP CELLS 1+
[2023-08-18 09:07] LABS: CALCIUM, SERUM 7.5 mg/dL (8.5-10.1); CARBON DIOXIDE 20 mmol/L (21-32); CHLORIDE 103 mmol/L (98-107); CREATININE 3.8 mg/dL (0.6-1.3); GLUCOSE 97 mg/dL (74-106); POTASSIUM 4.2 mmol/L (3.5-5.1); SODIUM SERUM 139 mmol/L (136-145); UREA NITROGEN, BLOOD 52 mg/dL (7-18)
[2023-08-18 12:11] LABS: PROTEIN, BODY FLUID 2.2 G/DL
[2023-08-18 12:56] LABS: ABG BASE EXCESS -7.9 mmol/L; ABG OXYGEN SATURATION 98.2 % (92.0-98.5); ABG PCO2 37.8 mmHg (35.0-45.0); ABG PH 7.294 (7.350-7.450); ABG PO2 121.9 mmHg (75.0-100.0); ABG TOTAL HEMOGLOBIN 15.1 G/dL (12.0-16.0); AaDO2 119.8 mmHg; COHb 0.8 % (0.5-1.5); MetHb 0.2 % (0.0-1.5); O2Hb 97.2 % (94.0-97.0); SITE, ABG Right Radial
[2023-08-18 14:03] LABS: APPEARANCE,SPUN,BODY FLUID CLEAR (CLEAR); TOTAL VOLUME,BODY FLUID 1950 mL
[2023-08-18 14:06] LABS: MONOCYTES,BODY FLUID 44 %; POLYNUCLEAR, BODY FLUID 31 % (0-25); WBC, BODY FLUID 8 /cu. mm. (0-200)
[2023-08-18] MEDS: SOD FERRIC GLUC 125 MG in IV NS 0.9% 100 ML IV SCH (14:53)
[2023-08-18] MEDS: MEROPENEM 500 MG in IV NS 0.9% 50 ML IV SCH (21:14)
[2023-08-18] MEDS ORDERED: NOREPINEPHRINE 4 MG/4 ML AMPUL IV ONE (22:16)
[2023-08-18] MEDS: NOREPINEPHRINE 4 MG/4 ML AMPUL IV ONE (22:23)
[2023-08-19] VITALS (101 sets, daily range): BP systolic 41–122; BP diastolic 23–97; TEMP 97–98.2; O2SAT 77–100
[2023-08-19] MEDS: NOREPINEPHRINE 32 MG in IV NS 0.9% 218 ML IV PRN (00:04)
[2023-08-19 03:56] LABS: BASOPHILS % (AUTO) 0.1 % (0.0-2.0); EOSINOPHILS % (AUTO) 0.1 % (0.0-6.0); HEMATOCRIT 46 % (33-45); LYMPHOCYTES # (AUTO) 0.3 K/uL (0.8-4.8); LYMPHOCYTES % (AUTO) 1.8 % (20.0-44.0); MEAN CORPUSCULAR HEMOGLOBIN 30 PG (26.0-33.0); MEAN CORPUSCULAR HGB CONC 33 g/dl (31.0-36.0); MEAN CORPUSCULAR VOLUME 92 fL (82-100); MONOCYTES # (AUTO) 0.8 K/uL (0.1-1.30); NEUTROPHILS # (AUTO) 17.7 K/uL (1.8-8.9); PLATELET COUNT (AUTO) 67 K/uL (150-450); RED BLOOD CELL COUNT(AUTO) 5.01 MIL/uL (4.0-5.2); RED CELL DISTRIBUTION WIDTH 19.4 % (11.5-15.0); WHITE BLOOD COUNT (AUTO) 18.9 K/uL (4.3-11.0)
[2023-08-19 04:09] LABS: CALCIUM, SERUM 7.9 mg/dL (8.5-10.1); CARBON DIOXIDE 18 mmol/L (21-32); CHLORIDE 102 mmol/L (98-107); CREATININE 3.5 mg/dL (0.6-1.3); GLUCOSE 90 mg/dL (74-106); POTASSIUM 4.3 mmol/L (3.5-5.1); SODIUM SERUM 140 mmol/L (136-145); UREA NITROGEN, BLOOD 38 mg/dL (7-18)
[2023-08-19 04:31] LABS: ANISOCYTOSIS 1+; BAND % (MANUAL) 3 % (0.0-5.0); BASOPHILS % (MANUAL) 0 % (0.0-2.0); EOSINOPHILS % (MANUAL) 1 % (0-4); LYMPHOCYTES % (MANUAL) 5 % (16-48); MONOCYTES % (MANUAL) 7 % (0-11.0); NEUTROPHILS % (MANUAL) 84 (42-76); PLATELET ESTIMATE DECREASED
[2023-08-19 04:33] LABS: ERYTHROCYTE SEDIMENTATION RATE 9 MM/HR (0-30)
[2023-08-19 06:13] LABS: D-DIMER 3.81 mg/L(FEU (0.17-0.50); PARTIAL THROMBOPLASTIN TIME 48.4 SEC (24.3-34.3); PROTHROMBIN TIME 20.3 SECS (9.2-11.1)
[2023-08-19] MEDS: PANTOPRAZOLE 40 MG VIAL IV SCH (07:58)
[2023-08-19 08:07] LABS: FOLIC ACID 4.3 ng/mL (>3.0); IMMUNOGLOBULIN A, SERUM 404 mg/dL (64-422); IMMUNOGLOBULIN G, SERUM 986 mg/dL (586-1602); IMMUNOGLOBULIN M, SERUM 72 mg/dL (26-217)
[2023-08-19 08:07] LABS: PTH, INTACT 97 pg/mL (15-65)
[2023-08-19 08:39] LABS: ABG BASE EXCESS -12.1 mmol/L; ABG OXYGEN SATURATION 98.1 % (92.0-98.5); ABG PCO2 27.4 mmHg (35.0-45.0); ABG PH 7.284 (7.350-7.450); ABG PO2 110.9 mmHg (75.0-100.0); ABG TOTAL HEMOGLOBIN 16.7 G/dL (12.0-16.0); AaDO2 574.7 mmHg; MetHb 0.3 % (0.0-1.5); O2Hb 96.8 % (94.0-97.0); SITE, ABG Right Radial; VENT MODE, BG 15L NRB
[2023-08-19] MEDS ORDERED: LEVOFLOXACIN (250MG) 250 MG TABLET PO SCH (09:00)
[2023-08-19 09:08] LABS: *SPE A/G RATIO 1.1 (0.7-1.7); *SPE ALBUMIN 2.7 g/dL (2.9-4.4); *SPE ALPHA-1-GLOBULIN 0.3 g/dL (0.0-0.4); *SPE ALPHA-2-GLOBULIN 0.4 g/dL (0.4-1.0); *SPE BETA GLOBULIN 0.8 g/dL (0.7-1.3); *SPE GLOBULIN, TOTAL 2.4 g/dL (2.2-3.9); *SPE M-SPIKE Not Observed g/dL (Not Observed); *SPE PROTEIN TOTAL 5.1 g/dL (6.0-8.5)
[2023-08-19] MEDS: DILTIAZEM HCL 25 MG IV IV ONE (10:28)
[2023-08-19] MEDS: IV NS 0.9% 250 ML IV PRN ×2 (10:33→20:44)
[2023-08-19] MEDS: DILTIAZEM HCL IV 125 MG in IV NS 0.9% 100 ML IV PRN (10:43)
[2023-08-19] MEDS: BLOOD SUGAR DIAGNOSTIC 1 EACH STRIP IN SCH (11:09)
[2023-08-19 12:07] LABS: HEPATITIS B SURFACE AB Non Reactive (.)
[2023-08-19 13:30] LABS: ABG BASE EXCESS -11.8 mmol/L; ABG OXYGEN SATURATION 93.2 % (92.0-98.5); ABG PCO2 28.8 mmHg (35.0-45.0); ABG PH 7.279 (7.350-7.450); ABG PO2 74.2 mmHg (75.0-100.0); ABG TOTAL HEMOGLOBIN 16.6 G/dL (12.0-16.0); AaDO2 177.9 mmHg; COHb 0.4 % (0.5-1.5); MetHb 0.5 % (0.0-1.5); O2Hb 92.4 % (94.0-97.0); SITE, ABG Right Radial; VENT MODE, BG 5L NC
[2023-08-19] MEDS: Sodium Bicarbonate 150 MEQ in IV D5W 1,000 ML IV SCH (19:05)
[2023-08-19] MEDS: ONDANSETRON HCL/PF 4 MG/2 ML VIAL IVP PRN (22:10)
[2023-08-20] VITALS (99 sets, daily range): BP systolic 52–153; BP diastolic 14–122; TEMP 97.4–98.6; O2SAT 28–99
[2023-08-20 04:00] LABS: BASOPHILS # (AUTO) 0.1 K/uL (0.0-0.2); BASOPHILS % (AUTO) 0.4 % (0.0-2.0); HEMATOCRIT 48 % (33-45); HEMOGLOBIN 14.9 g/dL (11.5-14.8); LYMPHOCYTES # (AUTO) 0.9 K/uL (0.8-4.8); LYMPHOCYTES % (AUTO) 5.8 % (20.0-44.0); MEAN CORPUSCULAR HEMOGLOBIN 29 PG (26.0-33.0); MEAN CORPUSCULAR HGB CONC 31 g/dl (31.0-36.0); MEAN CORPUSCULAR VOLUME 93 fL (82-100); MONOCYTES # (AUTO) 1.4 K/uL (0.1-1.30); MONOCYTES % (AUTO) 8.8 % (2.0-12.0); NEUTROPHILS # (AUTO) 13.6 K/uL (1.8-8.9); PLATELET COUNT (AUTO) 71 K/uL (150-450); RED BLOOD CELL COUNT(AUTO) 5.14 MIL/uL (4.0-5.2); RED CELL DISTRIBUTION WIDTH 19.6 % (11.5-15.0)
[2023-08-20 04:24] LABS: INR 3.08 (0.91-1.10); PARTIAL THROMBOPLASTIN TIME 50.2 SEC (24.3-34.3); PROTHROMBIN TIME 30.3 SECS (9.2-11.1)
[2023-08-20 04:32] LABS: D-DIMER 4.76 mg/L(FEU (0.17-0.50)
[2023-08-20 04:43] LABS: CALCIUM, SERUM 7.8 mg/dL (8.5-10.1); CARBON DIOXIDE 14 mmol/L (21-32); CHLORIDE 103 mmol/L (98-107); GLUCOSE 163 mg/dL (74-106); MAGNESIUM 2.3 mg/dL (1.8-2.4); PHOSPHORUS 7.4 mg/dL (2.5-4.9); SODIUM SERUM 139 mmol/L (136-145); UREA NITROGEN, BLOOD 49 mg/dL (7-18)
[2023-08-20] MEDS: DILTIAZEM HCL 25 MG IV ONE (04:47)
[2023-08-20 05:09] LABS: ANISOCYTOSIS 1+; LYMPHOCYTES % (MANUAL) 6 % (16-48); MONOCYTES % (MANUAL) 6 % (0-11.0); NEUTROPHILS % (MANUAL) 88 (42-76); PLATELET ESTIMATE DECREASED
[2023-08-20 07:09] LABS: COMPLEMENT C3, SERUM 64 mg/dL (82-167); COMPLEMENT C4, SERUM 17 mg/dL (12-38)
[2023-08-20 09:11] LABS: ALBUMIN 2.5 g/dL (3.4-5.0); BILIRUBIN,DIRECT 2.9 mg/dL (0.0-0.2); BILIRUBIN,TOTAL 4.3 mg/dL (0.2-1.0); TOTAL PROTEIN, SERUM 5.5 g/dL (6.4-8.2)
[2023-08-20 10:03] LABS: ABG BASE EXCESS -13.1 mmol/L; ABG PCO2 30.5 mmHg (35.0-45.0); ABG PO2 72.6 mmHg (75.0-100.0); AaDO2 177.5 mmHg; COHb 0.9 % (0.5-1.5); MetHb 0.4 % (0.0-1.5); O2Hb 90.8 % (94.0-97.0); SITE, ABG Right Radial; VENT MODE, BG nasal cannula
[2023-08-20] MEDS: MORPHINE SULFATE INJ 2 MG/ML DISP.SYRIN IV PRN (11:41)
[2023-08-20 13:09] LABS: HEPATITIS B SURFACE AB Non Reactive (.)
[2023-08-20] MEDS: AMIODARONE 150 MG in IV D5W 100 ML IV ONE (15:13)
[2023-08-20] MEDS: AMIODARONE 450 MG in IV D5W 241 ML IV PRN (15:34)
[2023-08-20] MEDS: VASOPRESSIN INJ 40 UNIT in IV NS 0.9% 38 ML IV PRN (20:59)
[2023-08-20] MEDS ORDERED: EPINEPHRINE (1:1000) MDV 30 MG/30ML VIAL ONE (23:49)
[2023-08-21] VITALS (91 sets, daily range): BP systolic 44–122; BP diastolic 15–109; TEMP 97–98.1; O2SAT 55–95
[2023-08-21 00:03] LABS: ABG BASE EXCESS -11.9 mmol/L; ABG OXYGEN SATURATION 89.8 % (92.0-98.5); ABG PCO2 44.7 mmHg (35.0-45.0); ABG PH 7.178 (7.350-7.450); ABG PO2 68.4 mmHg (75.0-100.0); ABG TOTAL HEMOGLOBIN 16.4 G/dL (12.0-16.0); AaDO2 599.9 mmHg; COHb 1.4 % (0.5-1.5); MetHb 0.4 % (0.0-1.5); O2Hb 88.2 % (94.0-97.0); SITE, ABG Right Radial; VENT MODE, BG NRB
[2023-08-21] MEDS: EPINEPHRINE (1:1000) 10 MG in IV NS 0.9% 240 ML IV PRN (00:24)
[2023-08-21 02:18] LABS: ABG BASE EXCESS -10.9 mmol/L; ABG OXYGEN SATURATION 96.8 % (92.0-98.5); ABG PCO2 28.3 mmHg (35.0-45.0); ABG PH 7.303 (7.350-7.450); ABG PO2 94.1 mmHg (75.0-100.0); ABG TOTAL HEMOGLOBIN 16.1 G/dL (12.0-16.0); AaDO2 590.6 mmHg; COHb 0.8 % (0.5-1.5); MetHb 0.5 % (0.0-1.5); O2Hb 95.5 % (94.0-97.0); PEEP,BG 5 cm H2O; SITE, ABG Right Radial; VENT MODE, BG AC 20 500 100% +5; VT, ABG 500 mL
[2023-08-21 04:30] LABS: HEMOGLOBIN 14.6 g/dL (11.5-14.8); MEAN CORPUSCULAR VOLUME 92 fL (82-100); WHITE BLOOD COUNT (AUTO) 17.7 K/uL (4.3-11.0)
[2023-08-21 04:44] LABS: CARBON DIOXIDE 17 mmol/L (21-32); CHLORIDE 98 mmol/L (98-107); CREATININE 3.4 mg/dL (0.6-1.3); GLUCOSE 237 mg/dL (74-106); PHOSPHORUS 6.8 mg/dL (2.5-4.9); POTASSIUM 4.5 mmol/L (3.5-5.1); SODIUM SERUM 137 mmol/L (136-145); UREA NITROGEN, BLOOD 41 mg/dL (7-18)
[2023-08-21 05:19] LABS: BASOPHILS % (AUTO) 0.1 % (0.0-2.0); EOSINOPHILS % (AUTO) 0.1 % (0.0-6.0); HEMATOCRIT 45 % (33-45); LYMPHOCYTES # (AUTO) 0.9 K/uL (0.8-4.8); MEAN CORPUSCULAR HEMOGLOBIN 30 PG (26.0-33.0); MEAN CORPUSCULAR HGB CONC 32 g/dl (31.0-36.0); MONOCYTES # (AUTO) 1.4 K/uL (0.1-1.30); MONOCYTES % (AUTO) 7.6 % (2.0-12.0); NEUTROPHILS # (AUTO) 15.5 K/uL (1.8-8.9); NEUTROPHILS % (AUTO) 87.2 % (43.0-81.0); RED BLOOD CELL COUNT(AUTO) 4.89 MIL/uL (4.0-5.2); RED CELL DISTRIBUTION WIDTH 18.6 % (11.5-15.0)
[2023-08-21 05:34] LABS: D-DIMER 3.93 mg/L(FEU (0.17-0.50); PARTIAL THROMBOPLASTIN TIME 59.4 SEC (24.3-34.3); PROTHROMBIN TIME 53.6 SECS (9.2-11.1)
[2023-08-21 05:36] LABS: PLATELET COUNT (AUTO) 47 K/uL (150-450)
[2023-08-21 05:42] LABS: INR 5.66 (0.91-1.10)
[2023-08-21] MEDS: INSULIN REGULAR, HUMAN 100 UNIT/ML 3 ML VIAL SQ PRN (05:42)
[2023-08-21 06:03] LABS: ANISOCYTOSIS 1+; LYMPHOCYTES % (MANUAL) 3 % (16-48); MONOCYTES % (MANUAL) 3 % (0-11.0); NEUTROPHILS % (MANUAL) 94 (42-76); PLATELET ESTIMATE DECREASED
[2023-08-21] MEDS: HYDROCORTISONE SOD SUCCINATE 100 MG/2 ML VIAL IV SCH (08:05)
[2023-08-21] MEDS ORDERED: ETOMIDATE 2 MG/ML VIAL IV ONE (09:07)
[2023-08-21] MEDS ORDERED: SUCCINYLCHOLINE CHLORIDE 20 MG/ML VIAL IV ONE (09:07)
[2023-08-21] MEDS: methylPREDNISolone SOD SUCC 1,000 MG in IV NS 0.9% 250 ML IV ONE (11:21)
[2023-08-21] MEDS: DOXYCYCLINE 200 MG in IV D5W 250 ML IV SCH (11:53)
[2023-08-21 12:51] LABS: LACTIC ACID 7.4 mmol/L (0.4-2.0)
[2023-08-21] MEDS: PRECEDEX 400 MCG/100 ML BOTTLE 100 ML IV PRN (13:56)
[2023-08-21] MEDS: DOBUTamine 500 MG in IV D5W 210 ML IV PRN (15:56)
[2023-08-21] MEDS: NTG 50 MG/D5W250 ML BOTTL 250 ML IV PRN (15:57)
[2023-08-21 16:49] LABS: ABG BASE EXCESS -11.5 mmol/L; ABG OXYGEN SATURATION 96.7 % (92.0-98.5); ABG PCO2 25.3 mmHg (35.0-45.0); ABG PH 7.317 (7.350-7.450); ABG PO2 94.5 mmHg (75.0-100.0); ABG TOTAL HEMOGLOBIN 15.4 G/dL (12.0-16.0); COHb 0.8 % (0.5-1.5); MetHb 0.4 % (0.0-1.5); O2Hb 95.5 % (94.0-97.0); SITE, ABG A-Line
[2023-08-21] MEDS: PHYTONADIONE INJ 10 MG/1 ML AMPUL SQ SCH (20:37)
[2023-08-21] MEDS: VANCOMYCIN 1 GM in IV D5W 250ml IV ONE (21:31)
[2023-08-22] VITALS (103 sets, daily range): BP systolic 49–149; BP diastolic 21–116; TEMP 96.8–100.8; O2SAT 60–83
[2023-08-22 04:17] LABS: BASOPHILS # (AUTO) 0.1 K/uL (0.0-0.2); BASOPHILS % (AUTO) 0.5 % (0.0-2.0); EOSINOPHILS % (AUTO) 0.1 % (0.0-6.0); HEMATOCRIT 38 % (33-45); HEMOGLOBIN 12.6 g/dL (11.5-14.8); LYMPHOCYTES # (AUTO) 0.5 K/uL (0.8-4.8); LYMPHOCYTES % (AUTO) 4.2 % (20.0-44.0); MEAN CORPUSCULAR HEMOGLOBIN 29 PG (26.0-33.0); MEAN CORPUSCULAR HGB CONC 33 g/dl (31.0-36.0); MEAN CORPUSCULAR VOLUME 90 fL (82-100); MONOCYTES # (AUTO) 0.6 K/uL (0.1-1.30); MONOCYTES % (AUTO) 4.6 % (2.0-12.0); NEUTROPHILS # (AUTO) 11.7 K/uL (1.8-8.9); NEUTROPHILS % (AUTO) 90.6 % (43.0-81.0); RED BLOOD CELL COUNT(AUTO) 4.28 MIL/uL (4.0-5.2); RED CELL DISTRIBUTION WIDTH 18.6 % (11.5-15.0); WHITE BLOOD COUNT (AUTO) 12.9 K/uL (4.3-11.0)
[2023-08-22 04:24] LABS: PLATELET COUNT (AUTO) 23 K/uL (150-450)
[2023-08-22] MEDS: NOREPINEPHRINE 4 MG/4 ML AMPUL IV ONE (04:35)
[2023-08-22 04:40] LABS: CALCIUM, SERUM 6.8 mg/dL (8.5-10.1); CARBON DIOXIDE 19 mmol/L (21-32); CHLORIDE 99 mmol/L (98-107); CREATININE 3.4 mg/dL (0.6-1.3); GLUCOSE 328 mg/dL (74-106); MAGNESIUM 1.9 mg/dL (1.8-2.4); POTASSIUM 4.1 mmol/L (3.5-5.1); SODIUM SERUM 137 mmol/L (136-145); UREA NITROGEN, BLOOD 48 mg/dL (7-18)
[2023-08-22 04:49] LABS: INR 2.25 (0.91-1.10); PARTIAL THROMBOPLASTIN TIME 43.9 SEC (24.3-34.3); PROTHROMBIN TIME 22.6 SECS (9.2-11.1)
[2023-08-22 05:01] LABS: D-DIMER 5.94 mg/L(FEU (0.17-0.50)
[2023-08-22 05:03] LABS: ANISOCYTOSIS 1+; BAND % (MANUAL) 6 % (0.0-5.0); BASOPHILS % (MANUAL) 0 % (0.0-2.0); EOSINOPHILS % (MANUAL) 0 % (0-4); LYMPHOCYTES % (MANUAL) 7 % (16-48); MONOCYTES % (MANUAL) 4 % (0-11.0); NEUTROPHILS % (MANUAL) 83 (42-76); PLATELET ESTIMATE DECREASED
[2023-08-22] MEDS ORDERED: VANCOMYCIN POST DIALYSIS 500MG IV PRN (06:00)
[2023-08-22 07:17] LABS: ABG BASE EXCESS -8.2 mmol/L; ABG OXYGEN SATURATION 93.7 % (92.0-98.5); ABG PH 7.382 (7.350-7.450); ABG PO2 71.4 mmHg (75.0-100.0); ABG TOTAL HEMOGLOBIN 13.9 G/dL (12.0-16.0); AaDO2 615.6 mmHg; COHb 0.8 % (0.5-1.5); MetHb 0.4 % (0.0-1.5); O2Hb 92.6 % (94.0-97.0); SITE, ABG A-Line
[2023-08-22] MEDS: PHENYLEPHRINE 50 MG in IV NS 0.9% 245 ML IV PRN (07:57)
[2023-08-22 09:20] LABS: APPEARANCE,URINE TURBID (CLEAR); BILIRUBIN,URINE 2+ (NEGATIVE); BLOOD, URINE 3+ Ery/uL (NEGATIVE); COLOR,URINE DARK YELLOW (YELLOW); KETONES,URINE TRACE mg/dL (NEGATIVE); LEUKOCYTE ESTERASE ,URINE 2+ (NEGATIVE); NITRITE, URINE NEGATIVE (NEGATIVE); PH,URINE 5.5 (5.0-8.0); PROTEIN,URINE 2+ mg/dl (NEGATIVE); UGLUCOSE NEGATIVE (NEGATIVE)
[2023-08-22 10:00] LABS: ADD URINE CULTURE YES; BACTERIA,URINE Many /HPF (None Seen); SQUAMOUS EPITHELIAL CELL,UR Rare /HPF (None Seen); WBC,URINE 51-80 /HPF (0-3)
[2023-08-22] MEDS: PHENYLEPHRINE 100 MG in IV NS 0.9% 240 ML IV PRN (11:09)
[2023-08-22] MEDS: PRECEDEX 400 MCG/100 ML BOTTLE 100 ML IV PRN (16:57)
[2023-08-23] VITALS (96 sets, daily range): BP systolic 78–106; BP diastolic 39–55; TEMP 97.7–100.5; O2SAT 66–81
[2023-08-23 05:36] LABS: CALCIUM, SERUM 6.1 mg/dL (8.5-10.1); CARBON DIOXIDE 15 mmol/L (21-32); CHLORIDE 100 mmol/L (98-107); CREATININE 3.9 mg/dL (0.6-1.3); GLUCOSE 347 mg/dL (74-106); POTASSIUM 4.7 mmol/L (3.5-5.1); SODIUM SERUM 133 mmol/L (136-145); UREA NITROGEN, BLOOD 61 mg/dL (7-18)
[2023-08-23 08:05] LABS: ABG BASE EXCESS -10.3 mmol/L; ABG OXYGEN SATURATION 98.1 % (92.0-98.5); ABG PCO2 20.6 mmHg (35.0-45.0); ABG PH 7.393 (7.350-7.450); ABG PO2 113.9 mmHg (75.0-100.0); ABG TOTAL HEMOGLOBIN 13.3 G/dL (12.0-16.0); AaDO2 578.5 mmHg; COHb 0.8 % (0.5-1.5); MetHb 0.3 % (0.0-1.5); PEEP,BG 8 cm H2O; SITE, ABG A-Line; VT, ABG 500 mL
[2023-08-23] MEDS: NOREPINEPHRINE 32 MG in IV NS 0.9% 250 ML IV PRN (10:27)
[2023-08-23 13:25] LABS: BASOPHILS % (AUTO) 0.1 % (0.0-2.0); HEMATOCRIT 37 % (33-45); HEMOGLOBIN 12.3 g/dL (11.5-14.8); LYMPHOCYTES # (AUTO) 0.9 K/uL (0.8-4.8); LYMPHOCYTES % (AUTO) 4.3 % (20.0-44.0); MEAN CORPUSCULAR HEMOGLOBIN 31 PG (26.0-33.0); MEAN CORPUSCULAR HGB CONC 34 g/dl (31.0-36.0); MEAN CORPUSCULAR VOLUME 91 fL (82-100); MONOCYTES % (AUTO) 5.1 % (2.0-12.0); NEUTROPHILS # (AUTO) 18.7 K/uL (1.8-8.9); NEUTROPHILS % (AUTO) 90.5 % (43.0-81.0); RED BLOOD CELL COUNT(AUTO) 4.04 MIL/uL (4.0-5.2); RED CELL DISTRIBUTION WIDTH 18.5 % (11.5-15.0); WHITE BLOOD COUNT (AUTO) 20.7 K/uL (4.3-11.0)
[2023-08-23 13:59] LABS: PLATELET COUNT (AUTO) 21 K/uL (150-450)
[2023-08-23 14:12] LABS: INR 1.86 (0.91-1.10); PARTIAL THROMBOPLASTIN TIME 52.9 SEC (24.3-34.3); PROTHROMBIN TIME 18.9 SECS (9.2-11.1)
[2023-08-23 14:13] LABS: D-DIMER 22.06 mg/L(FEU (0.17-0.50)
[2023-08-23 17:00] LABS: ANISOCYTOSIS 1+; BAND % (MANUAL) 1 % (0.0-5.0); LYMPHOCYTES % (MANUAL) 6 % (16-48); MONOCYTES % (MANUAL) 4 % (0-11.0); NEUTROPHILS % (MANUAL) 89 (42-76); PLATELET ESTIMATE DECREASED
[2023-08-23 17:01] LABS: ROULEAUX 1+; TARGET CELLS 1+
[2023-08-23] MEDS: DEXTROSE 50%-WATER 50 ML DISP.SYRIN IV PRN (20:04)
[2023-08-23] MEDS: VANCOMYCIN HCL 750 MG in IV D5W 250 ML IV SCH (23:06)
[2023-08-24] VITALS (71 sets, daily range): BP systolic 17–102; BP diastolic 12–55; TEMP 97.7–98.7; O2SAT 58–98
[2023-08-24 05:15] LABS: BASOPHILS # (AUTO) 0.4 K/uL (0.0-0.2); BASOPHILS % (AUTO) 1.3 % (0.0-2.0); HEMATOCRIT 38 % (33-45); HEMOGLOBIN 12.1 g/dL (11.5-14.8); LYMPHOCYTES # (AUTO) 0.5 K/uL (0.8-4.8); LYMPHOCYTES % (AUTO) 1.7 % (20.0-44.0); MEAN CORPUSCULAR HEMOGLOBIN 30 PG (26.0-33.0); MEAN CORPUSCULAR HGB CONC 32 g/dl (31.0-36.0); MEAN CORPUSCULAR VOLUME 93 fL (82-100); MONOCYTES # (AUTO) 1.1 K/uL (0.1-1.30); MONOCYTES % (AUTO) 3.5 % (2.0-12.0); NEUTROPHILS % (AUTO) 93.5 % (43.0-81.0); RED BLOOD CELL COUNT(AUTO) 4.06 MIL/uL (4.0-5.2); RED CELL DISTRIBUTION WIDTH 19.4 % (11.5-15.0)
[2023-08-24 05:23] LABS: CARBON DIOXIDE 12 mmol/L (21-32); CHLORIDE 100 mmol/L (98-107); CREATININE 3.8 mg/dL (0.6-1.3); GLUCOSE 357 mg/dL (74-106); POTASSIUM 4.8 mmol/L (3.5-5.1); SODIUM SERUM 131 mmol/L (136-145); UREA NITROGEN, BLOOD 66 mg/dL (7-18)
[2023-08-24 05:30] LABS: CALCIUM, SERUM 6.1 mg/dL (8.5-10.1)
[2023-08-24 05:43] LABS: INR 1.62 (0.91-1.10); PARTIAL THROMBOPLASTIN TIME 48.7 SEC (24.3-34.3); PROTHROMBIN TIME 16.6 SECS (9.2-11.1)
[2023-08-24 05:44] LABS: PLATELET COUNT (AUTO) 17 K/uL (150-450)
[2023-08-24 05:46] LABS: D-DIMER 23.18 mg/L(FEU (0.17-0.50)
[2023-08-24 08:22] LABS: ABG BASE EXCESS -12.1 mmol/L; ABG OXYGEN SATURATION 98.6 % (92.0-98.5); ABG PCO2 23.2 mmHg (35.0-45.0); ABG PH 7.328 (7.350-7.450); ABG PO2 138.4 mmHg (75.0-100.0); ABG TOTAL HEMOGLOBIN 12.9 G/dL (12.0-16.0); AaDO2 551.4 mmHg; COHb 0.8 % (0.5-1.5); MetHb 0.3 % (0.0-1.5); O2Hb 97.5 % (94.0-97.0); SITE, ABG A-Line
[2023-08-24 11:45] LABS: BAND % (MANUAL) 3 % (0.0-5.0); BASOPHILS % (MANUAL) 0 % (0.0-2.0); EOSINOPHILS % (MANUAL) 0 % (0-4); LYMPHOCYTES % (MANUAL) 4 % (16-48); MONOCYTES % (MANUAL) 5 % (0-11.0); NEUTROPHILS % (MANUAL) 88 (42-76)
[2023-08-24 11:46] LABS: ANISOCYTOSIS 1+; HYPOCHROMASIA 1+; OVALOCYTES 1+; PLATELET ESTIMATE DECREASED; TARGET CELLS 1+
[2023-08-25 10:08] LABS: *ANA ANTI-CENTROMERE B AB <0.2 AI (0.0-0.9); *ANA ANTI-DNA(DS) AB, QN <1 IU/mL (0-9); *ANA ANTI-JO-1 <0.2 AI (0.0-0.9); *ANA ANTICHROMATIN ANTIBODY <0.2 AI (0.0-0.9); *ANA RNP ANTIBODIES 0.3 AI (0.0-0.9); *ANA SJOGREN'S ANTI-SS-A <0.2 AI (0.0-0.9); *ANA SJOGREN'S ANTI-SS-B <0.2 AI (0.0-0.9); *ANAANTI-SCLERODERMA-70 AB <0.2 AI (0.0-0.9); *ANASMITH AB <0.2 AI (0.0-0.9)
== END 2023-08-24 06:20 | DRG 871 ==
LOC: ER 19:10 → TELE 08-16 00:04 → ICU 08-18 07:06
PROVIDERS: ADMIT Student in an Organized Health Care Education/Training Program; ATTEND Nurse Practitioner Acute Care
PROC: 06HM33Z Insertion of Infusion Device into Right Femoral Vein, Percutaneous Approach (ICD-10-PCS; 2023-08-16)
PROC: B54BZZA Ultrasonography of Right Lower Extremity Veins, Guidance (ICD-10-PCS; 2023-08-16)
PROC: 5A1D70Z Performance of Urinary Filtration, Intermittent, Less than 6 Hours Per Day (ICD-10-PCS; 2023-08-16)
PROC: 0W993ZZ Drainage of Right Pleural Cavity, Percutaneous Approach (ICD-10-PCS; 2023-08-18)
PROC: 02HV33Z Insertion of Infusion Device into Superior Vena Cava, Percutaneous Approach (ICD-10-PCS; 2023-08-18)
PROC: B548ZZA Ultrasonography of Superior Vena Cava, Guidance (ICD-10-PCS; 2023-08-18)
PROC: 5A1945Z Respiratory Ventilation, 24-96 Consecutive Hours (ICD-10-PCS; principal; 2023-08-21)
PROC: 30233K1 Transfusion of Nonautologous Frozen Plasma into Peripheral Vein, Percutaneous Approach (ICD-10-PCS; 2023-08-21)
PROC: 30233M1 Transfusion of Nonautologous Plasma Cryoprecipitate into Peripheral Vein, Percutaneous Approach (ICD-10-PCS; 2023-08-21)
PROC: 03H633Z Insertion of Infusion Device into Left Axillary Artery, Percutaneous Approach (ICD-10-PCS; 2023-08-21)
PROC: 0BH18EZ Insertion of Endotracheal Airway into Trachea, Via Natural or Artificial Opening Endoscopic (ICD-10-PCS; 2023-08-21)
DX: A41.9 Sepsis, unspecified organism (principal); D65 Disseminated intravascular coagulation [defibrination syndrome]; I21.A1 Myocardial infarction type 2; J96.01 Acute respiratory failure with hypoxia; N17.0 Acute kidney failure with tubular necrosis; R65.21 Severe sepsis with septic shock; I50.43 Acute on chronic combined systolic (congestive) and diastolic (congestive) heart failure; J18.9 Pneumonia, unspecified organism; I13.0 Hypertensive heart and chronic kidney disease with heart failure and stage 1 through stage 4 chronic kidney disease, or unspecified chronic kidney disease; E44.0 Moderate protein-calorie malnutrition; D61.818 Other pancytopenia; E87.20 Acidosis, unspecified; E87.1 Hypo-osmolality and hyponatremia; G93.40 Encephalopathy, unspecified; L03.116 Cellulitis of left lower limb; L03.115 Cellulitis of right lower limb; I42.9 Cardiomyopathy, unspecified; E11.52 Type 2 diabetes mellitus with diabetic peripheral angiopathy with gangrene; M86.672 Other chronic osteomyelitis, left ankle and foot; M86.671 Other chronic osteomyelitis, right ankle and foot; L97.528 Non-pressure chronic ulcer of other part of left foot with other specified severity; L97.518 Non-pressure chronic ulcer of other part of right foot with other specified severity; J98.11 Atelectasis; N18.9 Chronic kidney disease, unspecified; E11.22 Type 2 diabetes mellitus with diabetic chronic kidney disease; I25.10 Atherosclerotic heart disease of native coronary artery without angina pectoris; I48.91 Unspecified atrial fibrillation; Z91.199 Patient's noncompliance with other medical treatment and regimen due to unspecified reason; Z66 Do not resuscitate; K74.60 Unspecified cirrhosis of liver; E87.5 Hyperkalemia; E88.09 Other disorders of plasma-protein metabolism, not elsewhere classified; F03.90 Unspecified dementia, unspecified severity, without behavioral disturbance, psychotic disturbance, mood disturbance, and anxiety; E11.43 Type 2 diabetes mellitus with diabetic autonomic (poly)neuropathy; Z79.4 Long term (current) use of insulin; Z20.822 Contact with and (suspected) exposure to COVID-19; Z68.28 Body mass index [BMI] 28.0-28.9, adult; D64.9 Anemia, unspecified; L89.156 Pressure-induced deep tissue damage of sacral region; L89.106 Pressure-induced deep tissue damage of unspecified part of back; L89.326 Pressure-induced deep tissue damage of left buttock; L89.316 Pressure-induced deep tissue damage of right buttock; S81.802A Unspecified open wound, left lower leg, initial encounter; S81.801A Unspecified open wound, right lower leg, initial encounter; X58.XXXA Exposure to other specified factors, initial encounter; Y93.9 Activity, unspecified; Y92.129 Unspecified place in nursing home as the place of occurrence of the external cause; E11.69 Type 2 diabetes mellitus with other specified complication; M85.80 Other specified disorders of bone density and structure, unspecified site; I87.8 Other specified disorders of veins; L98.8 Other specified disorders of the skin and subcutaneous tissue
CPT/HCPCS: 31720; 36415; 36569; 36600; 71045-TC; 76700-TC; 76770-TC; 80048-TC; 80053-TC; 80076-TC; 80202-TC; 81001; 82140-TC; 82378; 82550-TC; 82607-TC; 82728-TC; 82784; 82803-TC; 82962-TC; 83010; 83540-TC; 83605-TC; 83615-TC; 83735-TC; 83880; 83970; 84100-TC; 84155; 84165; 84439-TC; 84443-TC; 84484-TC; 85025-TC; 85240; 85385-TC; 85396; 85610-TC; 85652-TC; 86225; 86235; 86334; 86431-TC; 86706; 86803; 86850-TC; 87040-TC; 87086-TC; 87102-TC; 87340; 88108-TC; 88305-TC; 88312-TC; 89051-TC; 90935-TC; 92526; 92611-TC; 93307-TC; 93970-TC; 93971-TC; 94002-TC; 94003-TC; 94799-TC; A4216; A4223; A6253; A6403; C9113; G0378; J0171; J0282; J0330; J1250; J1720; J1815; J1940; J2185; J2270; J2405; J2916; J2930; J3370; J3371; J3430; J3490; J7030; J7040; J7050; J7060; J7070; P9012; P9017; P9047